=== PATIENT | female | born 1935 | race Caucasian/White ===

== ENCOUNTER → 2017-12-02 09:22 | Outpatient (CLI) | payer OTHER, SELFPAY ==
--- NOTE | 2017-12-02 | DI.CT.S_ITS ---
PROCEDURE: CT ABDOMEN W CON INDICATIONS: Upper right sided abdominal pain TECHNIQUE: After the administration of oral and intravenous contrast, 5 mm thick sections acquired from the diaphragms to the iliac crests. 5 mm thick coronal and sagittal reformats were acquired. For radiation dose reduction, the following was used: automated exposure control, adjustment of mA and/or kV according to patient size. COMPARISON: [facility], CT, CHEST HIGH RESOLUTION, 10/26/2011, 8:26. FINDINGS: Image quality: Excellent. Lung bases: Lung bases are clear except for chronic fibrotic change with mild focal bronchiectasis locally at the posterior right lower lobe, with adjacent lung scarring. Heart size is normal. Solid organs: Liver is normal in size and enhancement. There are several subcentimeter hypodensities within the spleen, measuring only approximately 3-4 mm in maximal dimension. Gallbladder is surgically absent. Biliary system is non dilated. Pancreas enhances normally. Spleen is normal in size. No adrenal nodules. Kidneys are normal in size, without hydronephrosis. Peritoneum and bowel: Contrast enhanced bowel loops appear normal in caliber. There is moderate colonic obstipation and surgical staple lines are seen at the right upper abdomen, consistent with colon. Anastomosis, without mass lesion or operative complications seen at the operative site. No free fluid or air. Nodes and vessels: No retroperitoneal or mesenteric adenopathy by size criteria. Aorta and inferior vena cava are normal in size. Bones: No suspicious bony lesions. No vertebral body compression fractures. Miscellaneous: No ventral hernias. IMPRESSION: Prior cholecystectomy, and what appears to be a small [id number] anastomosis is seen at the right mid abdomen. Colonic obstipation is seen elsewhere. No intestinal obstruction or perforation found. A definite source of new upper right-sided abdominal pain is not seen. Chronic appearing scarring and mild focal bronchiectasis is present at the right lower lobe, near the posterior lung base. Acute pneumonia does not appear superimposed. Dictated by: Orlin Mcnamara M.D. on 12/02/2017 at 13:37 Approved by: Orlin Mcnamara M.D. on 12/02/2017 at 13:42
== END ==
PROVIDERS: Family Provider Internal Medicine; PCP Internal Medicine; Visit Provider Internal Medicine
DX: K59.00 Constipation, unspecified (principal); R10.10 Upper abdominal pain, unspecified
CPT/HCPCS: 74160

== ENCOUNTER → 2020-01-14 15:04 | Outpatient (CLI) | payer OTHER, SELFPAY ==
--- NOTE | 2020-01-14 | DI.RAD.S_ITS ---
PROCEDURE: XR CHEST 2V INDICATIONS: Cough TECHNIQUE: 2 views of the chest were acquired. COMPARISON: [facility], , CHEST 2 VIEW, 10/01/2011, 12:49. FINDINGS: Surgical changes and devices: Upper quadrant surgical clips.. Lungs and pleura: Patchy and streaky opacities in the right lung base. No focal consolidation scattered scarring/atelectasis. No pleural effusions or pneumothorax. Mediastinum: Mediastinal contours are normal. Heart size is normal. Bones and chest wall: No suspicious bony abnormalities. Lateral curvature of the spine and discogenic changes. Soft tissues appear unremarkable. IMPRESSION: Ill-defined patchy and streaky opacities involving the right lung base, possibly scarring/atelectasis although technically age-indeterminate. Technically cannot exclude low grade aspiration or bronchopneumonia in the absence of more recent prior comparison studies. If there is persistent clinical diagnostic uncertainty, continued surveillance with short interval chest radiographs after treatment is recommended. No focal consolidation. Dictated by: Alex Melvin M.D. on 01/14/2020 at 15:56 Approved by: Alex Melvin M.D. on 01/14/2020 at 15:57
== END ==
PROVIDERS: Family Provider Internal Medicine; PCP Internal Medicine; Referring Provider Internal Medicine; Visit Provider Internal Medicine
DX: R05 Cough (principal)
CPT/HCPCS: 71046

== ENCOUNTER → 2020-02-12 11:49 | Outpatient (CLI) | payer OTHER, SELFPAY ==
--- NOTE | 2020-02-12 11:54 | DI.CT.S_ITS ---
PROCEDURE: CT CHEST WO CON INDICATIONS: abnormal findings on diagnostic images TECHNIQUE: Noncontrast 5 mm thick sections acquired from the pulmonary apices to the posterior costophrenic angles. 1 mm lung window, 5 mm thick coronal and sagittal and 7 mm axial MIP reformats were then acquired. For radiation dose reduction, the following was used: automated exposure control, adjustment of mA and/or kV according to patient size. COMPARISON: [facility], CT, CT ABDOMEN W CON, 12/02/2017, 10:22. [facility], CT, CHEST HIGH RESOLUTION, 10/26/2011, 8:26. [facility], CR, XR CHEST 2V, 01/14/2020, 15:00. FINDINGS: Image quality: Excellent. Lungs and pleura: No acute air space opacities. No pleural effusions or pneumothorax. Central and peripheral airways are patent and normal in caliber. Emphysematous changes are present. As identified on the prior exam, there is a thin-walled, expanding cavitary lesion in the right lower lobe with areas of solid wall nodularity. It currently measures 42 mm AP x 31 mm transverse compared to 23 mm AP x 25 mm transverse. There is associated traction bronchiectasis as well as mucous plugging and occlusion of adjacent bronchus. This corresponds to area of abnormality on chest x-ray. Mediastinum: Heart size is normal. No pericardial effusion. No mediastinal adenopathy by size criteria. Thoracic aorta and central pulmonary arteries are normal in size. Esophagus is normal in caliber. Prominent hiatal hernia. Bones and chest wall: No suspicious bony lesions. No vertebral body compression fractures. No axillary or supraclavicular adenopathy by size criteria. Thyroid gland is unremarkable . Abdomen: Visualized upper abdominal solid organs and bowel loops appear normal in the absence of contrast. IMPRESSION: 1. Cavitary lesion with wall nodularity identified in the right lower lobe which has increased in size compared to prior exam. While this could represent scarring, parenchymal destruction raises concern for an underlying process such as indolent infection including fungal. Malignancy also cannot be excluded. Further evaluation with biopsy and/or PET scan is recommended. Dictated by: Arleen Quigley M.D. on 02/12/2020 at 16:12 Approved by: Arleen Quigley M.D. on 02/12/2020 at 16:40
== END ==
PROVIDERS: Family Provider Internal Medicine; PCP Internal Medicine; Referring Provider Internal Medicine; Visit Provider Internal Medicine
DX: R93.89 Abnormal findings on diagnostic imaging of other specified body structures (principal); R91.8 Other nonspecific abnormal finding of lung field
CPT/HCPCS: 71250

== ENCOUNTER → 2020-03-04 15:31 | Outpatient (ROUT) | payer OTHER, SELFPAY ==
[2020-03-04 15:41] LABS: Add Manual Diff / Slide Review NO; Basophils Absolute Auto 0 /uL (0-100); Basophils Percent Auto 0.5 % (0-2); Eosinophils Absolute Auto 100 /uL (0-450); Hematocrit 41.1 % (36-46); Hemoglobin 13.8 g/dL (12.0-16.0); Lymphocytes Absolute Auto 1300 /uL (1100-4500); Lymphocytes Percent Auto 14.7 % (25-40); Mean Corpuscular HGB Conc 33.6 % (30-36); Mean Corpuscular Hemoglobin 29.2 PG (26-34); Monocytes Absolute Auto 800 /uL (0-900); Monocytes Percent Auto 8.5 % (3-14); Neutrophils Absolute Auto 6800 /uL (1500-7000); Neutrophils Percent Auto 75.3 % (50-75); Platelet Count 202 X10^3/uL (150-400); Red Blood Cell Count 4.72 X10^6/uL (4.0-5.2); Red Cell Distribution Width 13.7 % (11.6-14.8); White Blood Cell Count 9.1 X10^3/uL (4.5-11.0)
[2020-03-04 15:50] LABS: Alanine Aminotransferase 15 IU/L (<35); Albumin 4.3 g/dL (3.5-5.0); Albumin Globulin Ratio 1.8 (1.0-2.8); Alkaline Phosphatase 103 U/L (38-126); Aspartate Aminotransferase 35 IU/L (14-36); BUN Creatinine Ratio 17.6 (6-22); Bilirubin Total 0.7 mg/dL (0.2-1.3); Blood Urea Nitrogen 16 mg/dL (7-17); C-Reactive Protein Quant 0.5 mg/dL (<1.0); Calcium 9.6 mg/dL (8.4-10.2); Carbon Dioxide 23 mmol/L (22-32); Chloride 106 mmol/L (98-107); Estimated Glomerular Filt Rate 58.9 mL/min (>60); Globulin 2.4 g/dL (1.7-4.1); Glucose 103 mg/dL (80-110); HEMOLYSIS 20 (0-50); Potassium 4.3 mmol/L (3.4-5.1); Sodium 138 mmol/L (137-145); Total Protein 6.7 g/dL (6.3-8.2)
[2020-03-04 15:56] LABS: Hemoglobin A1C% w Est Avg Glu 5.1 % (4.0-6.0)
[2020-03-04 16:02] LABS: Erythrocyte Sedimentation Rate 6 MM/HR (0-20)
[2020-03-04 16:18] LABS: TSH w/ Reflex to FT4 1.27 uIU/mL (0.47-4.68)
== END ==
PROVIDERS: Family Provider Internal Medicine; PCP Internal Medicine; Visit Provider Physician Assistant
DX: R63.4 Abnormal weight loss (principal); R61 Generalized hyperhidrosis; R68.83 Chills (without fever); R53.83 Other fatigue
CPT/HCPCS: 80053; 83036; 84443; 85025; 85651; 86140

== ENCOUNTER → 2020-07-26 11:37 | Outpatient (CLI) | payer OTHER, SELFPAY ==
[2020-07-26 12:37] LABS: BUN Creatinine Ratio 17.8 (6-22); Blood Urea Nitrogen 19 mg/dL (7-17); Calcium 9.3 mg/dL (8.4-10.2); Carbon Dioxide 29 mmol/L (22-32); Chloride 107 mmol/L (98-107); Estimated Glomerular Filt Rate 48.7 mL/min (>60); Glucose 102 mg/dL (80-110); HEMOLYSIS < 15 (0-50); Potassium 4.4 mmol/L (3.4-5.1); Sodium 139 mmol/L (137-145)
== END ==
PROVIDERS: Family Provider Internal Medicine; PCP Internal Medicine; Referring Provider Internal Medicine Critical Care Medicine; Visit Provider Internal Medicine Critical Care Medicine
DX: R91.8 Other nonspecific abnormal finding of lung field (principal); J98.4 Other disorders of lung
CPT/HCPCS: 36415; 80048

== ENCOUNTER → 2021-01-05 09:43 | Outpatient (CLI) | payer OTHER, SELFPAY ==
--- NOTE | 2021-01-05 09:48 | DI.RAD.S_ITS ---
PROCEDURE: XR CHEST 2V INDICATIONS: CHEST TECHNIQUE: 2 views of the chest were acquired. COMPARISON: [facility], [place], PET NECK TO MID THIGH, 03/25/2020, 14:20. , CT, CT CHEST WO CON, 02/12/2020, 11:51. [facility], CT, CT CHEST WITH CONTRAST, 08/01/2020, 14:28. , CR, XR CHEST 2V, 01/14/2020, 15:00. , CR, CHEST 2 VIEW, 10/01/2011, 12:49. FINDINGS: Surgical changes and devices: None. Lungs and pleura: Lungs are abnormal, with chronic right lower lobe pneumonia best seen on the lateral view posteriorly. Airspace disease has been chronic in this area, including cavitary change identified by prior CT scanning.. No pleural effusions or pneumothorax. Mediastinum: Mediastinal contours are normal. Heart size is normal. Bones and chest wall: No suspicious bony abnormalities. Soft tissues appear unremarkable. IMPRESSION: Chronic lung disease right lower lobe posteriorly, better seen by prior CT scanning. Cavitary change has been documented in that area. This has not changed appreciably from 1 year ago. Therefore, inflammatory etiology rather than cavitary malignancy is considered the most likely cause at this time. Dictated by: Orlin Mcnamara M.D. on 01/05/2021 at 11:01 Approved by: Orlin Mcnamara M.D. on 01/05/2021 at 11:05
[2021-01-05 11:15] LABS: Add Manual Diff / Slide Review NO; Basophils Absolute Auto 100 /uL (0-100); Basophils Percent Auto 0.9 % (0-2); Eosinophils Absolute Auto 200 /uL (0-450); Eosinophils Percent Auto 1.9 % (2-4); Hematocrit 41.3 % (36-46); Hemoglobin 14.1 g/dL (12.0-16.0); Lymphocytes Absolute Auto 1400 /uL (1100-4500); Lymphocytes Percent Auto 17.4 % (25-40); Mean Corpuscular HGB Conc 34.1 % (30-36); Mean Corpuscular Hemoglobin 29.4 PG (26-34); Mean Corpuscular Volume 86.2 fL (80-100); Monocytes Absolute Auto 800 /uL (0-900); Monocytes Percent Auto 9.7 % (3-14); Neutrophils Absolute Auto 5800 /uL (1500-7000); Neutrophils Percent Auto 70.1 % (50-75); Platelet Count 177 X10^3/uL (150-400); Red Blood Cell Count 4.79 X10^6/uL (4.0-5.2); White Blood Cell Count 8.3 X10^3/uL (4.5-11.0)
[2021-01-05 11:28] LABS: Appearance Urine UA CLEAR; Bilirubin Urine UA NEGATIVE (NEGATIVE); Color Urine UA YELLOW; Glucose Urine UA NEGATIVE (Negative); Ketones Urine UA NEGATIVE (NEGATIVE); Leukocyte Esterase Urine UA TRACE (NEGATIVE); Nitrite Urine UA NEGATIVE (Negative); Occult Blood Urine UA TRACE-INTACT (Negative); Protein Urine UA NEGATIVE (Negative); Urobilinogen Urine UA 0.2 E.U./dL (0.2)
[2021-01-05 11:41] LABS: Amorphous Sediment Urine 1+; Bacteria Urine Few (2-10); Culture Indicated Urine Specimen Cultured; RBC Urine 1-5/HPF (0-5/HPF); Squamous Epithelial Cell Urine 1-5 /HPF (0-5/HPF); WBC Urine 1-5/HPF (0-5/HPF)
[2021-01-05 11:44] LABS: Alanine Aminotransferase 14 IU/L (<35); Albumin 4.1 g/dL (3.5-5.0); Albumin Globulin Ratio 1.7 (1.0-2.8); Alkaline Phosphatase 94 U/L (38-126); Aspartate Aminotransferase 28 IU/L (14-36); Bilirubin Total 0.7 mg/dL (0.2-1.3); Blood Urea Nitrogen 15 mg/dL (7-17); Calcium 9.6 mg/dL (8.4-10.2); Carbon Dioxide 24 mmol/L (22-32); Chloride 106 mmol/L (98-107); Cholesterol 179 mg/dL (140-199); Estimated Glomerular Filt Rate 48.7 mL/min (>60); Globulin 2.4 g/dL (1.7-4.1); Glucose 94 mg/dL (80-110); HDL Cholesterol 66 mg/dL (40-60); HEMOLYSIS < 15 (0-50); LDL Cholesterol Calculated 84 mg/dL (<100); Potassium 4.5 mmol/L (3.4-5.1); Sodium 139 mmol/L (137-145); Total Protein 6.5 g/dL (6.3-8.2); Triglycerides 147 mg/dL (35-150)
[2021-01-05 12:16] LABS: Thyroid Stimulating Hormone 2.29 uIU/mL (0.47-4.68)
== END ==
PROVIDERS: Family Provider Internal Medicine; PCP Family Medicine; Referring Provider Family Medicine; Visit Provider Family Medicine
DX: A15.0 Tuberculosis of lung (principal); J98.4 Other disorders of lung; I25.2 Old myocardial infarction; E78.00 Pure hypercholesterolemia, unspecified; R73.09 Other abnormal glucose; M48.061 Spinal stenosis, lumbar region without neurogenic claudication; G31.84 Mild cognitive impairment of uncertain or unknown etiology; J30.9 Allergic rhinitis, unspecified; Z98.61 Coronary angioplasty status
CPT/HCPCS: 36415; 71046; 80053; 80061; 81001; 83036; 84443; 85025; 87086

== ENCOUNTER → 2021-12-05 11:49 | Outpatient (CLI) | payer OTHER, SELFPAY ==
--- NOTE | 2021-12-05 | DI.CT.S_ITS ---
PROCEDURE: CT HEAD/BRAIN WO CON INDICATIONS: Alzheimer's disease, unspecified TECHNIQUE: Noncontrast 4.5 mm thick angled axial sections acquired from the foramen magnum to the vertex, with coronal and sagittal reformats. For radiation dose reduction, the following was used: automated exposure control, adjustment of mA and/or kV according to patient size. COMPARISON: None. FINDINGS: Image quality: Excellent. CSF spaces: Basal cisterns are patent. No extra-axial fluid collections. The ventricles are symmetric in size and shape. Brain: Severe global cerebral volume loss and moderate to severe chronic microvascular ischemic changes. No acute intracranial hemorrhage. No mass effect or midline shift. Skull and face: Calvarium and visualized facial bones appear intact, without suspicious lesions. Sinuses: Visualized sinuses and mastoids are clear. IMPRESSION: No acute intracranial finding. Severe global cerebral volume loss, without definite regional or lobar predilection to suggest a specific neuro degenerative disorder. Moderate to severe chronic microvascular ischemic changes. Dictated by: Brian Pierson M.D. on 12/05/2021 at 12:19 Approved by: Brian Pierson M.D. on 12/05/2021 at 12:19
== END ==
PROVIDERS: Family Provider Internal Medicine; PCP Family Medicine; Referring Provider Family Medicine; Visit Provider Family Medicine
DX: G30.9 Alzheimer's disease, unspecified
CPT/HCPCS: 70450

== ENCOUNTER → 2022-03-14 12:18 | Outpatient (CLI) | payer OTHER, SELFPAY ==
--- NOTE | 2022-03-14 | DI.RAD.S_ITS ---
PROCEDURE: XR LUMBAR SPINE 2-3V INDICATIONS: Dorsalgia, unspecified TECHNIQUE: 3 views of the lumbar spine were acquired. [facility], [facility] LUMBAR SPINE WITH OLBIQUES PLUS FLEXION EXTENSION, 12/13/2017, 14:54. FINDINGS: Bones: Dextro convex spinal curvature. Grade 1 anterolisthesis of L5 on S1 again seen. Moderate multilevel spondylosis characterized by disc space height loss and facet arthropathy primarily. Age indeterminate mild endplate deformities. Soft tissues: Overlying bowel gas pattern is normal. No suspicious soft tissue calcifications. Vascular calcifications. Suture lines in the right lower quadrant. Large stool burden. IMPRESSION: Moderate to severe spondylosis as described above. Age-indeterminate mild endplate deformities. Large stool burden. Vascular calcifications. Dictated by: Venkatesh Cheatham M.D. on 03/14/2022 at 16:23 Approved by: Venkatesh Cheatham M.D. on 03/14/2022 at 16:27
== END ==
PROVIDERS: Family Provider Internal Medicine; PCP Family Medicine; Referring Provider Family Medicine; Visit Provider Family Medicine
DX: M47.817 Spondylosis without myelopathy or radiculopathy, lumbosacral region (principal); M43.17 Spondylolisthesis, lumbosacral region; M54.9 Dorsalgia, unspecified
CPT/HCPCS: 72100

== ENCOUNTER → 2022-03-20 11:57 | Outpatient (CLI) | payer OTHER, SELFPAY | PROVIDERS: Family Provider Internal Medicine; PCP Family Medicine; Visit Provider Family Medicine | DX: Z13.820 Encounter for screening for osteoporosis (principal); M81.0 Age-related osteoporosis without current pathological fracture; Z78.0 Asymptomatic menopausal state; Z92.23 Personal history of estrogen therapy; Z90.710 Acquired absence of both cervix and uterus | CPT/HCPCS: 77080 ==

== ENCOUNTER 2023-02-06 11:12 | Inpatient (IN) | payer OTHER, SELFPAY ==
[2023-02-06] VITALS (13 sets, daily range): BP systolic 100–149; BP diastolic 53–66; PULSE 76–104; RESP 16–26; TEMP 36.8–37.6; O2SAT 92–100; BMI 22.6
--- NOTE | 2023-02-06 11:32 | DI.RAD.S_ITS ---
PROCEDURE: XR CHEST 1V INDICATIONS: suspected sepsis TECHNIQUE: One view of the chest was acquired. COMPARISON: [facility], CR, XR CHEST 2V, 01/05/2021, 10:00. FINDINGS: Surgical changes and devices: None. Lungs and pleura: Chronic emphysematous changes are seen. Ill-defined airspace opacities are noted in bilateral lower lung nichole concerning for small bilateral lower lobe infiltrate. No pleural effusions or pneumothorax. Mediastinum: Tortuous thoracic aorta with aortic arch calcifications are seen. Heart size is normal. Bones and chest wall: No suspicious bony lesions. Overlying soft tissues appear unremarkable. IMPRESSION: Finding is concerning for bilateral lower lobe patchy infiltrates. No pleural effusion or pneumothorax. COPD. Dictated by: Johnathan Kat M.D. on 02/06/2023 at 11:57 Approved by: Johnathan Kat M.D. on 02/06/2023 at 11:57
[2023-02-06] MEDS: SODIUM CHLORIDE 0.9% 1,000 ML 1000 ML IV (11:43)
--- NOTE | 2023-02-06 11:43 | PC.NURSE ---
Patient day 5 of uti symptoms. [facility] started abx this morning. Has had one dose. Presents with flank pain, ankle pain and abd pain. Daughter states she is more tired. Low grade fever upon arrival to ED
[2023-02-06 11:53] LABS: INR 1.4 (0.9-1.3); Prothrombin Time 15.6 SECONDS (10.1-12.7)
[2023-02-06 11:56] LABS: PTT Partial Thromboplastin Tim 32 SECONDS (26-36)
[2023-02-06 11:57] LABS: Lactate (Lactic Acid) 0.8 mmol/L (0.7-2.1)
[2023-02-06 11:58] LABS: Alanine Aminotransferase 17 IU/L (<35); Albumin 3.4 g/dL (3.5-5.0); Alkaline Phosphatase 90 U/L (38-126); Aspartate Aminotransferase 25 IU/L (14-36); BUN Creatinine Ratio 19.6 (6-22); Bilirubin Total 0.6 mg/dL (0.2-1.3); Blood Urea Nitrogen 20 mg/dL (7-17); Calcium 8.4 mg/dL (8.4-10.2); Carbon Dioxide 24 mmol/L (22-32); Chloride 103 mmol/L (98-107); Estimated Glomerular Filt Rate 53 mL/min (>60); Globulin 3.3 g/dL (1.7-4.1); Glucose 124 mg/dL (80-110); HEMOLYSIS < 15 (0-50); Lipase 48 U/L (23-300); Potassium 3.9 mmol/L (3.4-5.1); Sodium 136 mmol/L (137-145); Total Protein 6.7 g/dL (6.3-8.2)
[2023-02-06 12:00] LABS: Add Manual Diff / Slide Review NO; Basophils Absolute Auto 0 /uL (0-100); Basophils Percent Auto 0.4 % (0-2); Eosinophils Absolute Auto 0 /uL (0-450); Eosinophils Percent Auto 0.1 % (2-4); Hematocrit 28.6 % (36-46); Hemoglobin 9.5 g/dL (12.0-16.0); Lymphocytes Absolute Auto 600 /uL (1100-4500); Lymphocytes Percent Auto 4.4 % (25-40); Mean Corpuscular HGB Conc 33.4 % (30-36); Mean Corpuscular Hemoglobin 26.4 PG (26-34); Mean Corpuscular Volume 79.2 fL (80-100); Monocytes Absolute Auto 1000 /uL (0-900); Monocytes Percent Auto 7.3 % (3-14); Neutrophils Absolute Auto 11900 /uL (1500-7000); Neutrophils Percent Auto 87.8 % (50-75); Platelet Count 289 X10^3/uL (150-400); Red Blood Cell Count 3.61 X10^6/uL (4.0-5.2); Red Cell Distribution Width 16.1 % (11.6-14.8); White Blood Cell Count 13.5 X10^3/uL (4.5-11.0)
[2023-02-06 12:15] LABS: Procalcitonin 2.04 ng/mL (<0.5)
--- NOTE | 2023-02-06 12:55 | ED_ITS ---
HPI - Female Genitourinary <Batsheva Loza PA-C - Last Filed: 02/06/23 15:34> General Chief complaint: Urogenital-Female Stated complaint: DR sent UTI Time Seen by Provider: 02/06/23 11:28 Source: patient Mode of arrival: Wheelchair History of Present Illness HPI Narrative: 87-year-old female with past medical history hypercholesterolemia, dementia, dextroscoliosis brought in by her daughter to the ED for worsening week and visible UTI. Patient has advanced dementia, unable to provide history or ROS. History and ROS were obtained from patient's daughter who states that patient lives in a memory care center, they notified her 5 days ago that she has a UTI, was prescribed antibiotics. Patient was unable to start her antibiotics until this morning, however when patient's daughter took her to the PCP this morning, he sent her to the ED to rule out sepsis. Patient's daughter says that patient appears weak, refusing to walk, whereas she used to walk with a walker prior to that. Patient has been complaining about a back pain to her daughter. No known trauma or falls. Patient's daughter states that she is eating well, unsure of how much hydration she is getting. No vomiting, diarrhea. Related Data Home Medications Medication Instructions Recorded Confirmed aspirin 81 mg capsule,delayed 81 mg PO DAILY 02/06/23 02/06/23 release cephalexin 500 mg capsule 500 mg PO BID 02/06/23 02/06/23 risperidone 1 mg tablet 1 mg PO BEDTIME 02/06/23 02/06/23 Allergies Allergy/AdvReac Type Severity Reaction Status Date / Time adhesive Allergy Mild Verified 02/06/23 17:52 amoxicillin Allergy Mild Verified 02/06/23 17:52 cephalexin [From Keflex] Allergy Mild Verified 02/06/23 17:52 erythromycin base Allergy Mild Verified 02/06/23 17:52 Sulfa (Sulfonamide Allergy Mild Verified 02/06/23 17:52 Antibiotics) [id number] Reductase AdvReac Mild Leg cramps Verified 02/06/23 17:52 Inhibitor Review of Systems <Batsheva Loza PA-C - Last Filed: 02/06/23 15:34> Review of Systems ROS Unobtainable: Unobtainable due to mental condition Patient History <Batsheva Loza PA-C - Last Filed: 02/06/23 15:34> Medical History (Updated 02/06/23 @ 18:01 by Louis Mobley DO) CAD (coronary artery disease) CKD (chronic kidney disease), stage III Dementia Dextroscoliosis Lumbosacral spondylosis with radiculopathy Surgical History (Updated 02/06/23 @ 18:01 by Louis Mobley DO) History of coronary artery stent placement Family History (Updated 02/06/23 @ 18:02 by Louis Mobley DO) Mother No pertinent past medical history Father No pertinent past medical history alcohol intake frequency: holidays/special occasions only Substance Use Type: does not use Exam <Batsheva Loza PA-C - Last Filed: 02/06/23 15:34> Narrative Exam Narrative: Const General:?cooperative, somnolent but easily arousable HENAL Head:?normal to inspection Ears:?hearing grossly normal bilaterally Nose:?external nose normal Face and sinus:?normal facial exam and sinuses nontender Mouth:?oral mucosae normal Throat:?posterior oropharynx normal Eyes General:?appearance normal, both eyes and all related structures Neck Neck:?normal visual inspection and no lymphadenopathy noted Resp Effort & Inspection:?normal respiratory effort Auscultation:?clear to auscultation bilaterally Cardio Rate:?regular rate Rhythm:?regular rhythm GI Abdomen is soft, nondistended, nontender to palpation. Neuro General:?patient alert, patient somnolent but easily arousable Initial Vital Signs Initial Vital Signs: Vital Signs Temperature 98.9 F 02/06/23 11:15 Pulse Rate 104 H 02/06/23 11:15 Respiratory Rate 16 02/06/23 11:15 Blood Pressure 116/58 L 02/06/23 11:15 Pulse Oximetry 96 02/06/23 11:15 Oxygen Delivery Method Room Air 02/06/23 11:15 <Radha Evans DO - Last Filed: 02/06/23 19:06> Initial Vital Signs Initial Vital Signs: Vital Signs Temperature 98.9 F 02/06/23 11:15 Pulse Rate 104 H 02/06/23 11:15 Respiratory Rate 16 02/06/23 11:15 Blood Pressure 116/58 L 02/06/23 11:15 Pulse Oximetry 96 02/06/23 11:15 Oxygen Delivery Method Room Air 02/06/23 11:15 Course <Batsheva Loza PA-C - Last Filed: 02/06/23 15:34> Orders Ordered: ED Orders 02/06/23 11:32 XR chest 1V Stat RT Consult Eval and Treat NOW 02/06/23 11:35 Complete Blood Count AUTO DIFF Stat Comprehensive Metabolic Panel Stat Lactate (Lactic Acid) Stat Lipase Stat PTT Partial Thromboplastin Miguelito Stat Procalcitonin Stat Prothrombin Time INR Stat 02/06/23 11:46 Blood Culture Stat 02/06/23 12:18 Urinalysis and Microscopic Stat Urine Culture Stat 02/06/23 15:20 EKG-12 Lead Stat 02/07/23 05:00 Complete Blood Count AUTO DIFF DAILY Comprehensive Metabolic Panel DAILY Magnesium DAILY Procalcitonin DAILY 02/08/23 05:00 Complete Blood Count AUTO DIFF DAILY Comprehensive Metabolic Panel DAILY Magnesium DAILY 02/09/23 05:00 Complete Blood Count AUTO DIFF DAILY Comprehensive Metabolic Panel DAILY Magnesium DAILY Acetaminophen (Acetaminophen 325 Mg Tablet) 650 mg PO Q6H PRN PRN Reason: Fever/Mild Pain (1-3) Aspirin (Aspirin Ec 81 Mg Tablet) 81 mg PO DAILY [facility] Enoxaparin Sodium (Enoxaparin 40 Mg/0.4 Ml Syringe) 40 mg SUBCUT DAILY [facility] Ceftriaxone Sodium 1,000 mg/ (Sodium Chloride) 100 mls @ 200 mls/hr IV 1300 ASHOK Stop: 02/11/23 12:59 Sodium Chloride (Normal Saline 0.9%) 250 mls @ 21 mls/hr IV Q24H PRN PRN Reason: Flush Naloxone HCl (Naloxone 0.4 Mg/Ml Vial) 0.2 mg IV Q2MIN PRN PRN Reason: Opiate Reversal Risperidone (Risperidone 1 Mg Tablet) 1 mg PO BEDTIME ASHOK Sodium Chloride (Sodium Chloride 0.9% Flush) 10 ml IV PRN PRN PRN Reason: Flush Sodium Chloride (Sodium Chloride 0.9% Flush) 10 ml IV BID ASHOK Discontinued Medications Acetaminophen (Acetaminophen 325 Mg Tablet) 975 mg PO NOW ONE Stop: 02/06/23 12:52 Last Admin: 02/06/23 13:20 Dose: 975 mg Documented By: ANDRE Azithromycin (Azithromycin 250 Mg Tablet) 500 mg PO NOW ONE Stop: 02/06/23 13:20 Last Admin: 02/06/23 15:48 Dose: 500 mg Documented By: AMU Sodium Chloride (Normal Saline 0.9%) 1,000 mls @ 1,000 mls/hr IV BOLUS ONE Stop: 02/06/23 12:31 Last Infusion: 02/06/23 13:58 Dose: 0 mls/hr Documented By: Admin: 02/06/23 11:43 Dose: 1,000 mls/hr Documented By: CHAS Sodium Chloride (Normal Saline 0.9%) 1,000 mls @ 1,000 mls/hr IV BOLUS ONE Stop: 02/06/23 13:33 Last Admin: 02/06/23 14:01 Dose: Not Given Documented By: LILIAN Ceftriaxone Sodium 1,000 mg/ (Sodium Chloride) 100 mls @ 200 mls/hr IV NOW ONE Stop: 02/06/23 12:35 Ceftriaxone Sodium 1,000 mg/ (Sodium Chloride) 100 mls @ 200 mls/hr IV NOW ONE Stop: 02/06/23 13:19 Last Infusion: 02/06/23 14:01 Dose: 0 mls/hr Documented By: Admin: 02/06/23 13:28 Dose: 200 mls/hr Documented By: ANDER Ondansetron HCl (Ondansetron 4 Mg/2 Ml Inj) 4 mg IV NOW PRN PRN Reason: Nausea And Vomiting Vital Signs Vital signs: Vital Signs - 8 hr 02/06/23 11:15 02/06/23 11:36 02/06/23 11:36 Temperature 98.9 F 99.2 F Pulse Rate 104 H 104 H Respiratory Rate 16 26 H Blood Pressure 116/58 L 119/65 Pulse Oximetry 96 95 Oxygen Delivery Method Room Air 02/06/23 12:00 02/06/23 12:00 02/06/23 12:30 Temperature Pulse Rate 84 Respiratory Rate 23 Blood Pressure 116/58 L 117/56 L Pulse Oximetry 94 Oxygen Delivery Method 02/06/23 12:30 02/06/23 13:20 02/06/23 13:00 Temperature 99.2 F Pulse Rate 84 Respiratory Rate Blood Pressure 144/66 H Pulse Oximetry 95 Oxygen Delivery Method 02/06/23 13:00 02/06/23 13:30 02/06/23 13:30 Temperature Pulse Rate 90 86 Respiratory Rate 20 24 Blood Pressure 144/63 H Pulse Oximetry 92 95 Oxygen Delivery Method 02/06/23 14:00 02/06/23 14:00 02/06/23 14:30 Temperature Pulse Rate 76 Respiratory Rate 18 Blood Pressure 111/53 L 127/58 L Pulse Oximetry 93 Oxygen Delivery Method 02/06/23 14:30 02/06/23 15:00 02/06/23 15:00 Temperature Pulse Rate 79 79 Respiratory Rate 19 20 Blood Pressure 100/55 L Pulse Oximetry 94 94 Oxygen Delivery Method 02/06/23 15:46 02/06/23 15:46 Temperature Pulse Rate 85 Respiratory Rate Blood Pressure 136/64 Pulse Oximetry 96 Oxygen Delivery Method Room Air <Radha Evans, DO - Last Filed: 02/06/23 19:06> Orders Ordered: ED Orders 02/06/23 11:32 XR chest 1V Stat RT Consult Eval and Treat NOW 02/06/23 11:35 Complete Blood Count AUTO DIFF Stat Comprehensive Metabolic Panel Stat Lactate (Lactic Acid) Stat Lipase Stat PTT Partial Thromboplastin Miguelito Stat Procalcitonin Stat Prothrombin Time INR Stat 02/06/23 11:46 Blood Culture Stat 02/06/23 12:18 Urinalysis and Microscopic Stat Urine Culture Stat 02/06/23 15:20 EKG-12 Lead Stat 02/07/23 05:00 Complete Blood Count AUTO DIFF DAILY Comprehensive Metabolic Panel DAILY Magnesium DAILY Procalcitonin DAILY 02/08/23 05:00 Complete Blood Count AUTO DIFF DAILY Comprehensive Metabolic Panel DAILY Magnesium DAILY 02/09/23 05:00 Complete Blood Count AUTO DIFF DAILY Comprehensive Metabolic Panel DAILY Magnesium DAILY Acetaminophen (Acetaminophen 325 Mg Tablet) 650 mg PO Q6H PRN PRN Reason: Fever/Mild Pain (1-3) Aspirin (Aspirin Ec 81 Mg Tablet) 81 mg PO DAILY [facility] Enoxaparin Sodium (Enoxaparin 40 Mg/0.4 Ml Syringe) 40 mg SUBCUT DAILY [facility] Ceftriaxone Sodium 1,000 mg/ (Sodium Chloride) 100 mls @ 200 mls/hr IV 1300 ASHOK Stop: 02/11/23 12:59 Sodium Chloride (Normal Saline 0.9%) 250 mls @ 21 mls/hr IV Q24H PRN PRN Reason: Flush Naloxone HCl (Naloxone 0.4 Mg/Ml Vial) 0.2 mg IV Q2MIN PRN PRN Reason: Opiate Reversal Risperidone (Risperidone 1 Mg Tablet) 1 mg PO BEDTIME [facility] Sodium Chloride (Sodium Chloride 0.9% Flush) 10 ml IV PRN PRN PRN Reason: Flush Sodium Chloride (Sodium Chloride 0.9% Flush) 10 ml IV BID ASHOK Discontinued Medications Acetaminophen (Acetaminophen 325 Mg Tablet) 975 mg PO NOW ONE Stop: 02/06/23 12:52 Last Admin: 02/06/23 13:20 Dose: 975 mg Documented By: ANDRE Azithromycin (Azithromycin 250 Mg Tablet) 500 mg PO NOW ONE Stop: 02/06/23 13:20 Last Admin: 02/06/23 15:48 Dose: 500 mg Documented By: GAYLE Sodium Chloride (Normal Saline 0.9%) 1,000 mls @ 1,000 mls/hr IV BOLUS ONE Stop: 02/06/23 12:31 Last Infusion: 02/06/23 13:58 Dose: 0 mls/hr Documented By: Admin: 02/06/23 11:43 Dose: 1,000 mls/hr Documented By: CHAS Sodium Chloride (Normal Saline 0.9%) 1,000 mls @ 1,000 mls/hr IV BOLUS ONE Stop: 02/06/23 13:33 Last Admin: 02/06/23 14:01 Dose: Not Given Documented By: LILIAN Ceftriaxone Sodium 1,000 mg/ (Sodium Chloride) 100 mls @ 200 mls/hr IV NOW ONE Stop: 02/06/23 12:35 Ceftriaxone Sodium 1,000 mg/ (Sodium Chloride) 100 mls @ 200 mls/hr IV NOW ONE Stop: 02/06/23 13:19 Last Infusion: 02/06/23 14:01 Dose: 0 mls/hr Documented By: Admin: 02/06/23 13:28 Dose: 200 mls/hr Documented By: ANDRE Ondansetron HCl (Ondansetron 4 Mg/2 Ml Inj) 4 mg IV NOW PRN PRN Reason: Nausea And Vomiting Vital Signs Vital signs: Vital Signs - 8 hr 02/06/23 11:15 02/06/23 11:36 02/06/23 11:36 Temperature 98.9 F 99.2 F Pulse Rate 104 H 104 H Respiratory Rate 16 26 H Blood Pressure 116/58 L 119/65 Pulse Oximetry 96 95 Oxygen Delivery Method Room Air 02/06/23 12:00 02/06/23 12:00 02/06/23 12:30 Temperature Pulse Rate 84 Respiratory Rate 23 Blood Pressure 116/58 L 117/56 L Pulse Oximetry 94 Oxygen Delivery Method 02/06/23 12:30 02/06/23 13:20 02/06/23 13:00 Temperature 99.2 F Pulse Rate 84 Respiratory Rate Blood Pressure 144/66 H Pulse Oximetry 95 Oxygen Delivery Method 02/06/23 13:00 02/06/23 13:30 02/06/23 13:30 Temperature Pulse Rate 90 86 Respiratory Rate 20 24 Blood Pressure 144/63 H Pulse Oximetry 92 95 Oxygen Delivery Method 02/06/23 14:00 02/06/23 14:00 02/06/23 14:30 Temperature Pulse Rate 76 Respiratory Rate 18 Blood Pressure 111/53 L 127/58 L Pulse Oximetry 93 Oxygen Delivery Method 02/06/23 14:30 02/06/23 15:00 02/06/23 15:00 Temperature Pulse Rate 79 79 Respiratory Rate 19 20 Blood Pressure 100/55 L Pulse Oximetry 94 94 Oxygen Delivery Method 02/06/23 15:46 02/06/23 15:46 Temperature Pulse Rate 85 Respiratory Rate Blood Pressure 136/64 Pulse Oximetry 96 Oxygen Delivery Method Room Air MDM - Female Genitourinary <Hymgreg Loza PA-C - Last Filed: 02/06/23 15:34> Lab Data 02/06/23 11:35 02/06/23 11:35 Labs: Lab Results 02/06/23 02/06/23 02/06/23 Range/Units 11:35 11:35 11:35 WBC 13.5 H (4.5-11.0) X10^3/uL RBC 3.61 L (4.0-5.2) X10^6/uL Hgb 9.5 L (12.0-16.0) g/dL Hct 28.6 L (36-46) % MCV 79.2 L (80-100) fL MCH 26.4 (26-34) PG MCHC 33.4 (30-36) % RDW 16.1 H (11.6-14.8) % Plt Count 289 (150-400) X10^3/uL Neut % (Auto) 87.8 H (50-75) % Lymph % (Auto) 4.4 L (25-40) % [place] % (Auto) 7.3 (3-14) % Eos % (Auto) 0.1 L (2-4) % Baso % (Auto) 0.4 (0-2) % Neut # (Auto) 85387 H (5870-3761) /uL Lymph # (Auto) 600 L (5667-4483) /uL [place] # (Auto) 1000 H (0-900) /uL Eos # (Auto) 0 (0-450) /uL Baso # (Auto) 0 (0-100) /uL PT 15.6 H (10.1-12.7) SECONDS INR 1.4 H (0.9-1.3) APTT 32 (26-36) SECONDS Sodium 136 L (137-145) mmol/L Potassium 3.9 (3.4-5.1) mmol/L Chloride 103 (98-107) mmol/L Carbon Dioxide 24 (22-32) mmol/L BUN 20 H (7-17) mg/dL Creatinine 1.02 (0.52-1.04) mg/dL Estimated GFR 53 L (>60) mL/min BUN/Creatinine Ratio 19.6 (6-22) Glucose 124 H (80-110) mg/dL Lactate (0.7-2.1) mmol/L Calcium 8.4 (8.4-10.2) mg/dL Total Bilirubin 0.6 (0.2-1.3) mg/dL AST 25 (14-36) IU/L ALT 17 (<35) IU/L Alkaline Phosphatase 90 (38-126) U/L Total Protein 6.7 (6.3-8.2) g/dL Albumin 3.4 L (3.5-5.0) g/dL Globulin 3.3 (1.7-4.1) g/dL Albumin/Globulin Ratio 1.0 (1.0-2.8) Lipase 48 (23-300) U/L Procalcitonin 2.04 H (<0.5) ng/mL Urine Color Urine Appearance Urine pH (4.5-8.0) Ur Specific [place] (1.000-1.035) Urine Protein (Negative) Urine Glucose (UA) (Negative) g/dL Urine Ketones (NEGATIVE) Urine Occult Blood (Negative) Urine Nitrate (Negative) Urine Bilirubin (NEGATIVE) Urine Urobilinogen (0.2) E.U./dL Ur Leukocyte Esterase (NEGATIVE) Urine RBC (0-5/HPF) Urine WBC (0-5/HPF) Ur Squamous Epith Cells (0-5/HPF) Amorphous Sediment Urine Bacteria (None) Ur Culture Indicated? 02/06/23 02/06/23 Range/Units 11:35 12:18 WBC (4.5-11.0) X10^3/uL RBC (4.0-5.2) X10^6/uL Hgb (12.0-16.0) g/dL Hct (36-46) % MCV (80-100) fL MCH (26-34) PG MCHC (30-36) % RDW (11.6-14.8) % Plt Count (150-400) X10^3/uL Neut % (Auto) (50-75) % Lymph % (Auto) (25-40) % [place] % (Auto) (3-14) % Eos % (Auto) (2-4) % Baso % (Auto) (0-2) % Neut # (Auto) (1161-3646) /uL Lymph # (Auto) (2648-5601) /uL [place] # (Auto) (0-900) /uL Eos # (Auto) (0-450) /uL Baso # (Auto) (0-100) /uL PT (10.1-12.7) SECONDS INR (0.9-1.3) APTT (26-36) SECONDS Sodium (137-145) mmol/L Potassium (3.4-5.1) mmol/L Chloride (98-107) mmol/L Carbon Dioxide (22-32) mmol/L BUN (7-17) mg/dL Creatinine (0.52-1.04) mg/dL Estimated GFR (>60) mL/min BUN/Creatinine Ratio (6-22) Glucose (80-110) mg/dL Lactate 0.8 (0.7-2.1) mmol/L Calcium (8.4-10.2) mg/dL Total Bilirubin (0.2-1.3) mg/dL AST (14-36) IU/L ALT (<35) IU/L Alkaline Phosphatase (38-126) U/L Total Protein (6.3-8.2) g/dL Albumin (3.5-5.0) g/dL Globulin (1.7-4.1) g/dL Albumin/Globulin Ratio (1.0-2.8) Lipase (23-300) U/L Procalcitonin (<0.5) ng/mL Urine Color Yellow Urine Appearance Clear Urine pH 6.5 (4.5-8.0) Ur Specific [place] 1.010 (1.000-1.035) Urine Protein Negative (Negative) Urine Glucose (UA) Negative (Negative) g/dL Urine Ketones Negative (NEGATIVE) Urine Occult Blood 2+ H (Negative) Urine Nitrate Negative (Negative) Urine Bilirubin Negative (NEGATIVE) Urine Urobilinogen 2.0 H (0.2) E.U./dL Ur Leukocyte Esterase Negative (NEGATIVE) Urine RBC 1-5/hpf (0-5/HPF) Urine WBC 5-10/hpf H (0-5/HPF) Ur Squamous Epith Cells None seen (0-5/HPF) Amorphous Sediment 1+ Urine Bacteria Occasional (0-1) (None) Ur Culture Indicated? Specimen cultured MDM Narrative Medical decision making narrative: 87-year-old female with past medical history hypercholesterolemia, dementia, dextroscoliosis brought in by her daughter to the ED for worsening week and visible UTI. Concern for UTI versus pyelonephritis versus sepsis versus ACS versus dehydration versus other. Will obtain labs, UA, chest x-ray, pro calcitonin, lactate. Will give IV fluids, Tylenol. Will reassess. Urinalysis is positive for a UTI. Chest x-ray shows possible bilateral lower lobe patchy infiltrates. WBC elevated to 13.5. Procalcitonin elevated to 2.04. Patient started on ceftriaxone, azithromycin. Consulted hospitalist Dr. Mobley for admission. He graciously accepts patient for observation. Medical records reviewed: Yes <Radha Evans DO - Last Filed: 02/06/23 19:06> Lab Data Labs: Lab Results 02/06/23 02/06/23 02/06/23 Range/Units 11:35 11:35 11:35 WBC 13.5 H (4.5-11.0) X10^3/uL RBC 3.61 L (4.0-5.2) X10^6/uL Hgb 9.5 L (12.0-16.0) g/dL Hct 28.6 L (36-46) % MCV 79.2 L (80-100) fL MCH 26.4 (26-34) PG MCHC 33.4 (30-36) % RDW 16.1 H (11.6-14.8) % Plt Count 289 (150-400) X10^3/uL Neut % (Auto) 87.8 H (50-75) % Lymph % (Auto) 4.4 L (25-40) % [place] % (Auto) 7.3 (3-14) % Eos % (Auto) 0.1 L (2-4) % Baso % (Auto) 0.4 (0-2) % Neut # (Auto) 78418 H (6870-1386) /uL Lymph # (Auto) 600 L (0945-6619) /uL [place] # (Auto) 1000 H (0-900) /uL Eos # (Auto) 0 (0-450) /uL Baso # (Auto) 0 (0-100) /uL PT 15.6 H (10.1-12.7) SECONDS INR 1.4 H (0.9-1.3) APTT 32 (26-36) SECONDS Sodium 136 L (137-145) mmol/L Potassium 3.9 (3.4-5.1) mmol/L Chloride 103 (98-107) mmol/L Carbon Dioxide 24 (22-32) mmol/L BUN 20 H (7-17) mg/dL Creatinine 1.02 (0.52-1.04) mg/dL Estimated GFR 53 L (>60) mL/min BUN/Creatinine Ratio 19.6 (6-22) Glucose 124 H (80-110) mg/dL Lactate (0.7-2.1) mmol/L Calcium 8.4 (8.4-10.2) mg/dL Total Bilirubin 0.6 (0.2-1.3) mg/dL AST 25 (14-36) IU/L ALT 17 (<35) IU/L Alkaline Phosphatase 90 (38-126) U/L Total Protein 6.7 (6.3-8.2) g/dL Albumin 3.4 L (3.5-5.0) g/dL Globulin 3.3 (1.7-4.1) g/dL Albumin/Globulin Ratio 1.0 (1.0-2.8) Lipase 48 (23-300) U/L Procalcitonin 2.04 H (<0.5) ng/mL Urine Color Urine Appearance Urine pH (4.5-8.0) Ur Specific [place] (1.000-1.035) Urine Protein (Negative) Urine Glucose (UA) (Negative) g/dL Urine Ketones (NEGATIVE) Urine Occult Blood (Negative) Urine Nitrate (Negative) Urine Bilirubin (NEGATIVE) Urine Urobilinogen (0.2) E.U./dL Ur Leukocyte Esterase (NEGATIVE) Urine RBC (0-5/HPF) Urine WBC (0-5/HPF) Ur Squamous Epith Cells (0-5/HPF) Amorphous Sediment Urine Bacteria (None) Ur Culture Indicated? 02/06/23 02/06/23 Range/Units 11:35 12:18 WBC (4.5-11.0) X10^3/uL RBC (4.0-5.2) X10^6/uL Hgb (12.0-16.0) g/dL Hct (36-46) % MCV (80-100) fL MCH (26-34) PG MCHC (30-36) % RDW (11.6-14.8) % Plt Count (150-400) X10^3/uL Neut % (Auto) (50-75) % Lymph % (Auto) (25-40) % [place] % (Auto) (3-14) % Eos % (Auto) (2-4) % Baso % (Auto) (0-2) % Neut # (Auto) (3796-4499) /uL Lymph # (Auto) (6406-5106) /uL [place] # (Auto) (0-900) /uL Eos # (Auto) (0-450) /uL Baso # (Auto) (0-100) /uL PT (10.1-12.7) SECONDS INR (0.9-1.3) APTT (26-36) SECONDS Sodium (137-145) mmol/L Potassium (3.4-5.1) mmol/L Chloride (98-107) mmol/L Carbon Dioxide (22-32) mmol/L BUN (7-17) mg/dL Creatinine (0.52-1.04) mg/dL Estimated GFR (>60) mL/min BUN/Creatinine Ratio (6-22) Glucose (80-110) mg/dL Lactate 0.8 (0.7-2.1) mmol/L Calcium (8.4-10.2) mg/dL Total Bilirubin (0.2-1.3) mg/dL AST (14-36) IU/L ALT (<35) IU/L Alkaline Phosphatase (38-126) U/L Total Protein (6.3-8.2) g/dL Albumin (3.5-5.0) g/dL Globulin (1.7-4.1) g/dL Albumin/Globulin Ratio (1.0-2.8) Lipase (23-300) U/L Procalcitonin (<0.5) ng/mL Urine Color Yellow Urine Appearance Clear Urine pH 6.5 (4.5-8.0) Ur Specific [place] 1.010 (1.000-1.035) Urine Protein Negative (Negative) Urine Glucose (UA) Negative (Negative) g/dL Urine Ketones Negative (NEGATIVE) Urine Occult Blood 2+ H (Negative) Urine Nitrate Negative (Negative) Urine Bilirubin Negative (NEGATIVE) Urine Urobilinogen 2.0 H (0.2) E.U./dL Ur Leukocyte Esterase Negative (NEGATIVE) Urine RBC 1-5/hpf (0-5/HPF) Urine WBC 5-10/hpf H (0-5/HPF) Ur Squamous Epith Cells None seen (0-5/HPF) Amorphous Sediment 1+ Urine Bacteria Occasional (0-1) (None) Ur Culture Indicated? Specimen cultured ECG Data Attestation: I personally reviewed and interpreted this ECG as follows: Prior ECG tracings: available for review Interpretation: Nathan: Sinus rhythm sinus arrhythmia, rate of 91 VT 160 QRS is 68 QTC [address] No acute ST elevation or depression appreciated. Patient has prior from appears similar to todays. Discharge Plan Departure Patient Disposition: Admitted as Observation Clinical Impression: Urinary tract infection, Pneumonia Admit Date/Time: 02/06/23 16:21 Admit Provider: Louis Mobley <Radha Evans, DO - Last Filed: 02/06/23 19:06> Cosign ED Attending Cosignature Attestation: I was immediately available in the department for consultation. Documentation has been reviewed. Case was discussed with myself. Insert for UTI/pneumonia, sepsis, patient case was discussed held off on sepsis fluids based on age so not 30 cc/kilos bolus initially. Antibiotics were given, patient's curb 65 score was 3, patient was felt appropriate for admission discussed with hospitalist and accepted.
[2023-02-06 13:01] LABS: Appearance Urine UA CLEAR; Bilirubin Urine UA NEGATIVE (NEGATIVE); Color Urine UA YELLOW; Glucose Urine UA NEGATIVE (Negative); Ketones Urine UA NEGATIVE (NEGATIVE); Leukocyte Esterase Urine UA NEGATIVE (NEGATIVE); Nitrite Urine UA NEGATIVE (Negative); Occult Blood Urine UA 2+ (Negative); Protein Urine UA NEGATIVE (Negative)
[2023-02-06 13:04] LABS: pH Urine UA 6.5 (4.5-8.0)
[2023-02-06 13:10] LABS: Amorphous Sediment Urine 1+; Bacteria Urine Occasional (0-1); Culture Indicated Urine Specimen Cultured; RBC Urine 1-5/HPF (0-5/HPF); Squamous Epithelial Cell Urine None Seen (0-5/HPF); WBC Urine 5-10/HPF (0-5/HPF)
[2023-02-06] MEDS: ACETAMINOPHEN 325 MG TABLET 975 MG PO (13:20)
[2023-02-06] MEDS: cefTRIAXone 1,000 MG in SODIUM CHLORIDE 0.9% 100 ML 200 MG IV (13:28)
--- NOTE | 2023-02-06 15:06 | PM.HP.1 ---
History of Present Illness History of Present Illness Date Patient Seen: 02/06/23 Time Patient Seen: 15:06 Date of Onset of Symptoms: 02/01/23 Chief complaint: DR sent UTI Narrative: This is an 87 year old female with PMH of dementia, CAD with prior stenting, CKD stage III who lives at a memory care center in [place] who was sent to the emergency room by her PCP this morning. Patient has been more lethargic over the last 4 days per her daughter. Additional history is obtained via discussion with patient's daughter given patient's dementia and inaccurate recall of events along with her noted lethargy. She has not reported a fever, abdominal pain, nausea, vomiting or diarrhea. There has been no cough noted either. Normally patient is quite talkative, ambulatory with a walker and active at her [facility]. She was tested and fount to have a UTI now 5 days ago, but did not take her first antibiotic pill (cephalexin) until this morning. She had a PCP appointment this morning, when she was noted to be quite a bit more lethargic per her PCP and was recommended to come to the ER. Daughter does report chronic R sided leg and back pain, maybe slightly worse than usual but nothing absurdly out of the ordinary for her. In the ER, patient's vitals were unremarkable. UA did show 5-10 WBC, RBC 1-5 and was reflexed for culture. Outside cultures are not available for review. Labs notable for WBC 13.5, Hg 9.5 (unknown baseline), cr 1.02, and procalcitonin of 2. Patient was admitted for UTI with metabolic encephlopathy. [facility] Medical History (Updated 02/06/23 @ 18:01 by Louis Mobley DO) CAD (coronary artery disease) CKD (chronic kidney disease), stage III Dementia Dextroscoliosis Lumbosacral spondylosis with radiculopathy Surgical History (Updated 02/06/23 @ 18:01 by Louis Mobley DO) History of coronary artery stent placement Family History (Updated 02/06/23 @ 18:02 by Louis Mobley DO) Mother No pertinent past medical history Father No pertinent past medical history Social History (Updated 02/06/23 @ 18:02 by Louis Mobley DO) Smoking Status: Never smoker Meds Home Medications and Allergies Home Medications Medication Instructions Recorded Confirmed Type aspirin 81 mg capsule,delayed 81 mg PO DAILY 02/06/23 02/06/23 History release cephalexin 500 mg capsule 500 mg PO BID 02/06/23 02/06/23 History risperidone 1 mg tablet 1 mg PO BEDTIME 02/06/23 02/06/23 History Allergies Allergy/AdvReac Type Severity Reaction Status Date / Time adhesive Allergy Mild Verified 02/06/23 17:52 amoxicillin Allergy Mild Verified 02/06/23 17:52 cephalexin [From Keflex] Allergy Mild Verified 02/06/23 17:52 erythromycin base Allergy Mild Verified 02/06/23 17:52 Sulfa (Sulfonamide Allergy Mild Verified 02/06/23 17:52 Antibiotics) [id number]-[id number] Reductase AdvReac Mild Leg cramps Verified 02/06/23 17:52 Inhibitor Review of Systems Review of Systems Narrative: All other systems reviewed with the patient's daughter and are negative unless otherwise stated. It should be noted these are reported and patient is unable to accurately relay reliable information. Exam Vital Signs (past 8 hours): - 02/06/23 11:15 02/06/23 11:36 02/06/23 11:36 Temperature 98.9 F 99.2 F Pulse Rate 104 H 104 H Respiratory Rate 16 26 H Blood Pressure 116/58 L 119/65 Pulse Oximetry 96 95 Oxygen Delivery Method Room Air 02/06/23 12:00 02/06/23 12:00 02/06/23 12:30 Temperature Pulse Rate 84 Respiratory Rate 23 Blood Pressure 116/58 L 117/56 L Pulse Oximetry 94 Oxygen Delivery Method 02/06/23 12:30 02/06/23 13:20 02/06/23 13:00 Temperature 99.2 F Pulse Rate 84 Respiratory Rate Blood Pressure 144/66 H Pulse Oximetry 95 Oxygen Delivery Method 02/06/23 13:00 02/06/23 13:30 02/06/23 13:30 Temperature Pulse Rate 90 86 Respiratory Rate 20 24 Blood Pressure 144/63 H Pulse Oximetry 92 95 Oxygen Delivery Method 02/06/23 14:00 02/06/23 14:00 02/06/23 14:30 Temperature Pulse Rate 76 Respiratory Rate 18 Blood Pressure 111/53 L 127/58 L Pulse Oximetry 93 Oxygen Delivery Method 02/06/23 14:30 Temperature Pulse Rate 79 Respiratory Rate 19 Blood Pressure Pulse Oximetry 94 Oxygen Delivery Method Oxygen Delivery Method Room Air Narrative Exam Narrative: General:? Lethargic mildly acutely ill appearing elderly female, no acute distress HEENT:? Normocephalic, atraumatic, extraocular muscles intact, oral pharynx is clear and mucous membranes are dry Neck: supple and symmetric, trachea is midline, no cervical adenopathy. Negative for JVD Chest:? Normal AP diameter and contour without kyphoscoliosis, no tachypnea, equal chest rise bilaterally. Lungs:? CTA b/l no wheezing rhonchi or rales. Cardio:?RRR no m/r/g. Abdomen: S NT ND. No CVA tenderness. Musculoskeletal:? Muscle strength and tone are equal within normal limits, no deformity. Extremities: No edema or joint effusions. No cyanosis or clubbing. Skin:? Pale,? Warm to touch,dry and intact without rashes, ulcerations or petechiae.? Neuro:? Alert and orientated to name and hospital,? sensation to touch intact in all extremities, no gross deficits noted of cranial nerves. Lethargic and more confused than normal per daughter. Psych:? Patient has a well-kept appearance, appropriate affect, mental status attitude thought context and judgment are appropriate for age. Objective ECG Impression: NSR with sinus arrythmia, no acute ischemia Labs 02/06/23 11:35 02/06/23 11:35 Labs: Laboratory Results - last 24 hr 02/06/23 02/06/23 02/06/23 11:35 11:35 11:35 WBC 13.5 H RBC 3.61 L Hgb 9.5 L Hct 28.6 L MCV 79.2 L MCH 26.4 MCHC 33.4 RDW 16.1 H Plt Count 289 Neut % (Auto) 87.8 H Lymph % (Auto) 4.4 L [place] % (Auto) 7.3 Eos % (Auto) 0.1 L Baso % (Auto) 0.4 Neut # (Auto) 11799 H Lymph # (Auto) 600 L [place] # (Auto) 1000 H Eos # (Auto) 0 Baso # (Auto) 0 PT 15.6 H INR 1.4 H APTT 32 Sodium 136 L Potassium 3.9 Chloride 103 Carbon Dioxide 24 BUN 20 H Creatinine 1.02 Estimated GFR 53 L BUN/Creatinine Ratio 19.6 Glucose 124 H Lactate Calcium 8.4 Total Bilirubin 0.6 AST 25 ALT 17 Alkaline Phosphatase 90 Total Protein 6.7 Albumin 3.4 L Globulin 3.3 Albumin/Globulin Ratio 1.0 Lipase 48 Procalcitonin 2.04 H Urine Color Urine Appearance Urine pH Ur Specific [place] Urine Protein Urine Glucose (UA) Urine Ketones Urine Occult Blood Urine Nitrate Urine Bilirubin Urine Urobilinogen Ur Leukocyte Esterase Urine RBC Urine WBC Ur Squamous Epith Cells Amorphous Sediment Urine Bacteria Ur Culture Indicated? 02/06/23 02/06/23 11:35 12:18 WBC RBC Hgb Hct MCV MCH MCHC RDW Plt Count Neut % (Auto) Lymph % (Auto) [place] % (Auto) Eos % (Auto) Baso % (Auto) Neut # (Auto) Lymph # (Auto) [place] # (Auto) Eos # (Auto) Baso # (Auto) PT INR APTT Sodium Potassium Chloride Carbon Dioxide BUN Creatinine Estimated GFR BUN/Creatinine Ratio Glucose Lactate 0.8 Calcium Total Bilirubin AST ALT Alkaline Phosphatase Total Protein Albumin Globulin Albumin/Globulin Ratio Lipase Procalcitonin Urine Color Yellow Urine Appearance Clear Urine pH 6.5 Ur Specific [place] 1.010 Urine Protein Negative Urine Glucose (UA) Negative Urine Ketones Negative Urine Occult Blood 2+ H Urine Nitrate Negative Urine Bilirubin Negative Urine Urobilinogen 2.0 H Ur Leukocyte Esterase Negative Urine RBC 1-5/hpf Urine WBC 5-10/hpf H Ur Squamous Epith Cells None seen Amorphous Sediment 1+ Urine Bacteria Occasional (0-1) Ur Culture Indicated? Specimen cultured Assessment & Plan Assessment & Plan narrative: This is an 87 year old female with PMH of dementia, CAD with prior stenting, CKD stage III who lives at a [facility] in [place] admitted with acute cystitis and acute metabolic encephalopathy 1. Acute cystitis - only recevied cephalexin x1 dose this morning, however diagnosed nearly 4 days ago. No CVA tenderness on exam. - no need for additional imaging as likely at baseline creatinine, but if no response to antibiotics consider renal imaging to rule out obstruction. - continue ceftriaxone for 5 days given encephalopathy. - there is noted possible infiltrates on chest radiograph, however based on my interpretation her imaging appears quite similar to prior studies with no acute infiltrates. 2. Acute metabolic encephalopathy, rule out sepsis - GCS 14, secondary to acute cystitis. Possible early sepsis but SOFA score on presentation is 1. 3. Dementia, chronic - continue home risperdal 1 mg at bedtime. 4. CKD stage III - continue to monitor creatinine, suspect at baseline currently with creatinine of 1.02. 5. CAD - continue home asa, statin reportedly stopped according to daughter by PCP Code: Full per patient's daughter and POA/surrogate DVT: Lovenox daily I have utilized all available immediate resources to obtain, update, or review the patient's current medications. Dispo: observation, depending on mental status and lethargy possible discharge home tomorrow if rapid improvement. Possibly may need beyond two midnights. Additional history obtained via discussion with the ER provider, and patient's daughter. I have reviewed patient's outpatient provider documentation (note from PCP today) and relevant labs, EKG, and imaging personally. Quality MIPS - Admit I confirm the patient?s Advance Care Plan is present, Code status is documented, Surrogate decision maker is in patient?s record [If Yes, STOP here]: Yes
[2023-02-06] MEDS: AZITHROMYCIN 250 MG TABLET 500 MG PO (15:48)
--- NOTE | 2023-02-06 16:05 | PC.NURSE ---
Pt was found out of bed. Had pulled out her IV and confused. Pt was guided back to the bed. IV restarted
[2023-02-06] MEDS: risperiDONE 1 MG TABLET PO (20:29)
[2023-02-06] MEDS: SODIUM CHLORIDE 0.9% FLUSH 10 ML IV (20:30)
[2023-02-07] VITALS (13 sets, daily range): BP systolic 129–177; BP diastolic 60–78; PULSE 81–116; RESP 16–20; TEMP 36.9–38.3; O2SAT 94–99
--- NOTE | 2023-02-07 00:40 | PC.NURSE ---
Addendum entered by Gail Youssef R.N. 02/07/23 02:22: Started in again attempting to get out of bed so staff sitting with her 1:1. Robson SCHWARTZ, contacted and order received for IV Ativan. Shortly after receiving order patient became calmer and is now making no attempts to get out of bed and appears to be sleeping so Ativan not administered. Addendum entered by Gail Youssef R.N. 02/07/23 01:57: Patient crawling out of bed so gotten up to BSC but did not urinate and brief was dry. Back to bed but became more agitated. Temp 100.9 so medicated with Tylenol. Continuing to make attempts to get out of bed stating philipryfavio, I need to get up. Became combative and responds to staff with god damn it your no fun. Kicking at staff and swinging with arms. Bladder scan done showing 350cc in bladder so again assisted to BSC and then urinated 425cc. Now calmer. recheck on temp is 100.6. Original Note: Patient is oriented to first name and knows month of birthday but off on day and does not know year. Breath sounds CTA with RA sat of 95%. HRR w/BP of 149/64. Denies nausea. BT present and abdomen is soft; unknown if continent or incontinent of stool. Has been mostly continent of urine but also has some incontinece so is wearing a brief. Does not remember to call for assistance and will attempt to get up on her own when needing to urinate; is SBA when out of bed. Is able to turn herself and is impulsive. Denies pain when asked. Fall risk score is high and bed alarm is activated.
[2023-02-07] MEDS: ACETAMINOPHEN 325 MG TABLET 650 MG PO (00:45)
[2023-02-07 05:44] LABS: Acinetobacter calcoa-baumannii Not Detected (Not Detect); Bacteroides fragilis Not Detected (Not Detect); CTX-M Resistance Not Detected (Not Detect); Candida albicans Not Detected (Not Detect); Candida auris Not Detected (Not Detect); Candida glabrata Not Detected (Not Detect); Enterobacter cloacae complex Not Detected (Not Detect); Enterobacterales DETECTED (Not Detect); Enterococcus faecalis Not Detected (Not Detect); Enterococcus faecium Not Detected (Not Detect); Haemophilus influenzae Not Detected (Not Detect); IMP Resistance Not Detected (Not Detect); KPC Resistance Not Detected (Not Detect); Klebsiella aerogenes Not Detected (Not Detect); Listeria monocytogenes Not Detected (Not Detect); NDM Resistance Not Detected (Not Detect); Neisseria meningitidis Not Detected (Not Detect); OXA-48-like Resistance Not Detected (Not Detect); Proteus species Not Detected (Not Detect); Pseudomonas aeruginosa Not Detected (Not Detect); Salmonella species Not Detected (Not Detect); Serratia marcescens Not Detected (Not Detect); Staphylococcus epidermidis Not Detected (Not Detect); Staphylococcus lugdunensis Not Detected (Not Detect); Staphylococcus species Not Detected (Not Detect); Stenotrophomonas maltophilia Not Detected (Not Detect); Streptococcus agalactiae (Gr B Not Detected (Not Detect); Streptococcus pneumonia Not Detected (Not Detect); Streptococcus pyogenes (Gr A) Not Detected (Not Detect); Streptococcus species Not Detected (Not Detect); VIM Resistance Not Detected (Not Detect); mcr-1 Resistance Not Detected (Not Detect)
[2023-02-07 05:45] LABS: Candida krusei Not Detected (Not Detect); Candida parapsilosis Not Detected (Not Detect); Candida tropicalis Not Detected (Not Detect); Cryptococcus neoformans/gatti Not Detected (Not Detect)
[2023-02-07 06:40] LABS: Add Manual Diff / Slide Review NO; Basophils Absolute Auto 100 /uL (0-100); Basophils Percent Auto 0.6 % (0-2); Eosinophils Absolute Auto 0 /uL (0-450); Eosinophils Percent Auto 0.1 % (2-4); Hemoglobin 9.2 g/dL (12.0-16.0); Lymphocytes Absolute Auto 500 /uL (1100-4500); Lymphocytes Percent Auto 5.2 % (25-40); Mean Corpuscular Hemoglobin 27.1 PG (26-34); Mean Corpuscular Volume 79.8 fL (80-100); Monocytes Absolute Auto 600 /uL (0-900); Neutrophils Absolute Auto 8500 /uL (1500-7000); Neutrophils Percent Auto 88.1 % (50-75); Platelet Count 235 X10^3/uL (150-400); Red Blood Cell Count 3.38 X10^6/uL (4.0-5.2); Red Cell Distribution Width 16.5 % (11.6-14.8); White Blood Cell Count 9.6 X10^3/uL (4.5-11.0)
[2023-02-07 06:52] LABS: Alanine Aminotransferase 17 IU/L (<35); Alkaline Phosphatase 72 U/L (38-126); Aspartate Aminotransferase 30 IU/L (14-36); BUN Creatinine Ratio 16.7 (6-22); Bilirubin Total 0.6 mg/dL (0.2-1.3); Blood Urea Nitrogen 18 mg/dL (7-17); Calcium 7.9 mg/dL (8.4-10.2); Carbon Dioxide 26 mmol/L (22-32); Chloride 105 mmol/L (98-107); Estimated Glomerular Filt Rate 50 mL/min (>60); Glucose 119 mg/dL (80-110); HEMOLYSIS 45 (0-50); Magnesium 1.9 mg/dL (1.6-2.3); Potassium 3.8 mmol/L (3.4-5.1); Sodium 137 mmol/L (137-145)
[2023-02-07 07:08] LABS: Procalcitonin 2.83 ng/mL (<0.5)
[2023-02-07] MEDS: SODIUM CHLORIDE 0.9% FLUSH 10 ML IV ×2 (08:32→21:08)
[2023-02-07] MEDS: ASPIRIN EC 81 MG TABLET PO (08:32)
[2023-02-07] MEDS: ENOXAPARIN 40 MG/0.4 ML SYRINGE SUBCUT (08:32)
[2023-02-07] MEDS: cefTRIAXone 2,000 MG in SODIUM CHLORIDE 0.9% 100 ML 200 MG IV (13:19)
--- NOTE | 2023-02-07 13:28 | P.PN_ITS ---
Subjective Subjective Interval history: 87 F admitted with acute encephalopathy, blood cultures now positive for E. coli with likely urinary source. She is still very tired today, but slowly improving. She denies complaints today and has no pain, nausea, or vomiting. Exam Vital Signs (past 8 hours): - 02/07/23 05:49 02/07/23 05:45 02/07/23 08:06 Temperature 98.4 F 99.6 F Pulse Rate 99 H 97 H Respiratory Rate 18 18 Blood Pressure 162/78 H 142/62 H Pulse Oximetry 97 97 99 Oxygen Delivery Method Room Air Oxygen Flow Rate 0 0 0 02/07/23 09:00 02/07/23 11:18 Temperature 99 F Pulse Rate 85 Respiratory Rate 18 Blood Pressure 129/60 Pulse Oximetry 95 97 Oxygen Delivery Method Room Air Oxygen Flow Rate 0 0 Oxygen Delivery Method Room Air Oxygen Flow Rate 0 Narrative Exam Narrative: General:? Lethargic mildly acutely ill appearing elderly female, no acute distress HEENT:? Normocephalic, atraumatic, extraocular muscles intact, oral pharynx is clear and mucous membranes are dry Neck: supple and symmetric, trachea is midline, no cervical adenopathy. Negative for JVD Chest:? Normal AP diameter and contour without kyphoscoliosis, no tachypnea, equal chest rise bilaterally. Lungs:? CTA b/l no wheezing rhonchi or rales. Cardio:?RRR no m/r/g. Abdomen: S NT ND. No CVA tenderness. Musculoskeletal:? Muscle strength and tone are equal within normal limits, no deformity. Extremities: No edema or joint effusions. No cyanosis or clubbing. Skin:? Pale,? Warm to touch,dry and intact without rashes, ulcerations or petechiae.? Neuro:? Alert and orientated to name and hospital,? sensation to touch intact in all extremities, no gross deficits noted of cranial nerves. Lethargic and more confused than normal but improved from yesterday per daughter. Psych:? Patient has a well-kept appearance, appropriate affect, mental status attitude thought context and judgment are appropriate for age. Objective Labs 02/07/23 06:15 02/07/23 06:15 Labs: Laboratory Results - last 24 hr 02/07/23 02/07/23 02/07/23 04:30 06:15 06:15 WBC 9.6 RBC 3.38 L Hgb 9.2 L Hct 27.0 L MCV 79.8 L MCH 27.1 MCHC 34.0 RDW 16.5 H Plt Count 235 Neut % (Auto) 88.1 H Lymph % (Auto) 5.2 L [place] % (Auto) 6.0 Eos % (Auto) 0.1 L Baso % (Auto) 0.6 Neut # (Auto) 8500 H Lymph # (Auto) 500 L [place] # (Auto) 600 Eos # (Auto) 0 Baso # (Auto) 100 Sodium 137 Potassium 3.8 Chloride 105 Carbon Dioxide 26 BUN 18 H Creatinine 1.08 H Estimated GFR 50 L BUN/Creatinine Ratio 16.7 Glucose 119 H Calcium 7.9 L Magnesium 1.9 Total Bilirubin 0.6 AST 30 ALT 17 Alkaline Phosphatase 72 Total Protein 6.0 L Albumin 3.0 L Globulin 3.0 Albumin/Globulin Ratio 1.0 Procalcitonin 2.83 H A.calcoaceticus-baumannii cmplx PCR Not detected Bacteroides fragilis Not detected Liz albicans (PCR) Not detected Liz auris (PCR) Not detected C. glabrata (PCR) Not detected C. krusei (PCR) Not detected C. parapsilosis (PCR) Not detected C. tropicalis (PCR) Not detected C. neoform/gattii (PCR) Not detected Enterobacterales (PCR) Detected H E. cloacae complex PCR Not detected Enterococc faecalis PCR Not detected Enterococc faecium PCR Not detected E. coli (PCR) Detected H H. influenzae (PCR) Not detected Klebsiella aerogenes (PCR) Not detected Klebsiella oxytoca PCR Not detected Klebsiella pneumoniae Not detected List. monocytogenes PCR Not detected N. meningitidis (PCR) Not detected Proteus species (PCR) Not detected Salmonella spp. (PCR) Not detected Serratia marcescens PCR Not detected Staphylococcus sp PCR Not detected Staph aureus (PCR) Not detected mcr-1 Colistin Res Gene PCR Not detected Staph epidermidis (PCR) Not detected Staph lugdunensis PCR Not detected S. maltophilia (PCR) Not detected Streptococcus sp PCR Not detected Group A Strep (PCR) Not detected Strep agalactiae (PCR) Not detected Strep pneumoniae (PCR) Not detected P. aeruginosa (PCR) Not detected blaIMP Car res Gene PCR Not detected KPC-Carbap Res Gene PCR Not detected blaNDM Car Res Gene PCR Not detected OXA-48 Carbapenem Resis Gene (PCR) Not detected blaVIM Car Res Gene PCR Not detected CTX-M Gene Resistance (PCR) Not detected PFSH Medical History (Updated 02/06/23 @ 18:01 by Louis Mobley DO) CAD (coronary artery disease) CKD (chronic kidney disease), stage III Dementia Dextroscoliosis Lumbosacral spondylosis with radiculopathy Surgical History (Updated 02/06/23 @ 18:01 by Louis Mobley DO) History of coronary artery stent placement Family History (Updated 02/06/23 @ 18:02 by Louis Mobley DO) Mother No pertinent past medical history Father No pertinent past medical history Social History (Updated 02/06/23 @ 18:02 by Louis Mobley DO) Smoking Status: Never smoker Assessment & Plan Assessment & Plan narrative: This is an 87 year old female with PMH of dementia, CAD with prior stenting, CKD stage III who lives at a [facility] center in [place] admitted with acute cystitis and acute metabolic encephalopathy, now with blood cultures growing E. coli. 1. Acute cystitis with E. coli bacteremia - only recevied cephalexin x1 dose the morning of admission as an outpatient, however diagnosed many days prior to admission. No CVA tenderness on exam. - no need for additional imaging as likely at baseline creatinine, but if no response to antibiotics consider renal imaging to rule out obstruction. - continue ceftriaxone for 7 days given blood cultures now with E. coli bacteremia. Can transition to oral medications on discharge. - there was noted possible infiltrates on admission chest radiograph, however based on my interpretation her imaging appears quite similar to prior studies with no acute infiltrates. 2. Acute metabolic encephalopathy, ruled out sepsis - GCS 14, secondary to acute cystitis and bacteremia. Possible early sepsis but SOFA score on presentation is 1. 3. Dementia, chronic - continue home risperdal 1 mg at bedtime. - add melatonin for sleep while in hospital 4. CKD stage III - continue to monitor creatinine, suspect at baseline currently with creatinine of 1.02. 5. CAD - continue home asa, statin reportedly stopped according to daughter by PCP Code: Full per patient's daughter and POA/surrogate DVT: Lovenox daily I have utilized all available immediate resources to obtain, update, or review the patient's current medications. Dispo: Changed to inpatient. Consider PT/OT depending on progress before returning to [facility] care facility. Additional history obtained via discussion with the ER provider, and patient's daughter. I have reviewed patient's outpatient provider documentation (note from PCP today) and relevant labs, EKG, and imaging personally.
[2023-02-07] MEDS: PHENAZOPYRIDINE 100 MG TABLET PO ×2 (15:25→21:08)
--- NOTE | 2023-02-07 15:40 | CM.DANOTE ---
DCP Assessment Note: Patient is a 87yo F here under inpatient status for a UTI and pneumonia. PCP: Milton Weiss Payer: [employer] medicare and medicare PROGRAM PROJECT MANAGER reviewed EMR. Per provider in rounds, patient will likely be here for a day or two to treat UTI/pneumonia. Patient lives at a memory care unit in [place]. From nursing staff, patient is irritated and confused. PROGRAM PROJECT MANAGER lvm with daughter/DPCornelia LOPEZ ([phone]). PROGRAM PROJECT MANAGER [facility] in [place]. Nurse Allegra reported patient ambulates independently and they assist her with some personal care needs. Patient is communicative and often confused with location/circumstance. Allegra reports they will need a discharge summary and for the nurse to give a nurse to nurse report. PROGRAM PROJECT MANAGER spoke with daughter outside of room. Daughter reports she can transport patient back to [facility] when medically stable. Plan: patient will d/c back to [facility] when medically stable via daughter in POV. CM team will continue to follow closely. JEANNETTE Pelayo Discharge Planning/Care Management Advanced directive,confirm from FACILITY Start: 02/06/23 17:43 Freq: Q24H Status: Active Protocol: Document 02/06/23 17:43 EM (Rec: 02/06/23 17:44 EM [id number]) Advance Directive, confirm on record Time 17:43 Person contacted [facility] staff Copy received No CM Discharge Assessment Start: 02/07/23 15:37 Freq: Status: Active Protocol: Document 02/07/23 15:37 SL (Rec: 02/07/23 15:40 SL [id number]) Discharge Planning Assessment Assigned Oncology Social Worker JEANNETTE Hugo DPJESSICA/Assigned Designee Name Daughter Cornelia Contact Information [phone] Advance Directives? Yes Advance Directives on File No History Provided By Family Member,Medical Record Prior Living Arrangements Assisted Living Comment [facility] in [place] Household Members other Type of transporation used prior to Relies on Others admit Facility Name Admitted From: [facility] Willing to Return to Facility? Yes Independent with ADL's No Is patient alert and oriented? No: confused Needs Assistance With Grooming,Meal Prep,Managing Medications,Home Chores / Shopping Barriers to Discharge No Discharge Plan Assisted Living Facility Transportation Arrangement daughter will likely transport Whiteboard Updated in Patient Room with No name and ext. # of Oncology Social Worker Review Status In Process Next Review Type Continued Stay Review
[2023-02-07] MEDS: risperiDONE 1 MG TABLET PO (21:08)
[2023-02-07] MEDS: MELATONIN 3 MG TABLET 6 MG PO (21:08)
[2023-02-08] VITALS (12 sets, daily range): BP systolic 111–152; BP diastolic 55–66; PULSE 76–107; RESP 16–18; TEMP 36.5–38; O2SAT 94–98
[2023-02-08 07:24] LABS: Add Manual Diff / Slide Review NO; Basophils Absolute Auto 0 /uL (0-100); Basophils Percent Auto 0.4 % (0-2); Eosinophils Absolute Auto 0 /uL (0-450); Eosinophils Percent Auto 0.2 % (2-4); Hemoglobin 9.5 g/dL (12.0-16.0); Lymphocytes Absolute Auto 400 /uL (1100-4500); Mean Corpuscular HGB Conc 34.1 % (30-36); Monocytes Absolute Auto 700 /uL (0-900); Neutrophils Absolute Auto 9100 /uL (1500-7000); Neutrophils Percent Auto 88.4 % (50-75); Platelet Count 200 X10^3/uL (150-400); Red Blood Cell Count 3.54 X10^6/uL (4.0-5.2); Red Cell Distribution Width 16.1 % (11.6-14.8); White Blood Cell Count 10.3 X10^3/uL (4.5-11.0)
[2023-02-08 07:31] LABS: Alanine Aminotransferase 18 IU/L (<35); Albumin 3.1 g/dL (3.5-5.0); Alkaline Phosphatase 101 U/L (38-126); Aspartate Aminotransferase 29 IU/L (14-36); Bilirubin Total 0.6 mg/dL (0.2-1.3); Blood Urea Nitrogen 13 mg/dL (7-17); Calcium 8.1 mg/dL (8.4-10.2); Carbon Dioxide 22 mmol/L (22-32); Chloride 102 mmol/L (98-107); Estimated Glomerular Filt Rate 59 mL/min (>60); Globulin 3.2 g/dL (1.7-4.1); Glucose 149 mg/dL (80-110); HEMOLYSIS < 15 (0-50); Magnesium 1.8 mg/dL (1.6-2.3); Potassium 3.5 mmol/L (3.4-5.1); Sodium 133 mmol/L (137-145); Total Protein 6.3 g/dL (6.3-8.2)
[2023-02-08] MEDS: PHENAZOPYRIDINE 100 MG TABLET PO ×3 (08:49→20:29)
[2023-02-08] MEDS: ENOXAPARIN 30 MG/0.3 ML SYRINGE SUBCUT (08:49)
[2023-02-08] MEDS: ASPIRIN EC 81 MG TABLET PO (08:50)
[2023-02-08] MEDS: SODIUM CHLORIDE 0.9% FLUSH 10 ML IV ×2 (08:50→20:29)
[2023-02-08] MEDS: ACETAMINOPHEN 325 MG TABLET 650 MG PO (08:50)
--- NOTE | 2023-02-08 12:21 | P.PN_ITS ---
Subjective Subjective Interval history: 87 F admitted with acute encephalopathy, blood cultures now positive for E. coli with likely urinary source. She is much improved today, more alert and eating lunch. Exam Vital Signs (past 8 hours): - 02/08/23 05:00 02/08/23 08:00 02/08/23 08:50 Temperature 100.4 F H 100.4 F H Pulse Rate 107 H Respiratory Rate 18 Blood Pressure 152/66 H Pulse Oximetry 95 94 Oxygen Delivery Method Room Air Oxygen Flow Rate 0 02/08/23 09:00 02/08/23 10:42 Temperature 97.9 F Pulse Rate Respiratory Rate Blood Pressure Pulse Oximetry 94 Oxygen Delivery Method Room Air Oxygen Flow Rate Oxygen Delivery Method Room Air Oxygen Flow Rate 0 Narrative Exam Narrative: General:? Well appearing elderly female, no acute distress HEENT:? Normocephalic, atraumatic, extraocular muscles intact, oral pharynx is clear and mucous membranes are dry Neck: supple and symmetric, trachea is midline, no cervical adenopathy. Negative for JVD Chest:? Normal AP diameter and contour without kyphoscoliosis, no tachypnea, equal chest rise bilaterally. Lungs:? CTA b/l no wheezing rhonchi or rales. Cardio:?RRR no m/r/g. Abdomen: S NT ND. No CVA tenderness. Musculoskeletal:? Muscle strength and tone are equal within normal limits, no deformity. Extremities: No edema or joint effusions. No cyanosis or clubbing. Skin:? Pale,? Warm to touch,dry and intact without rashes, ulcerations or petechiae.? Neuro:? Alert and orientated to name and hospital,? sensation to touch intact in all extremities, no gross deficits noted of cranial nerves. Much improved lethargy and alertness today. Psych:? Patient has a well-kept appearance, appropriate affect, mental status a ttitude thought context and judgment are appropriate for age. Objective Labs 02/08/23 06:59 02/08/23 06:59 Labs: Laboratory Results - last 24 hr 02/07/23 02/08/23 02/08/23 04:30 06:59 06:59 WBC 10.3 RBC 3.54 L Hgb 9.5 L Hct 28.0 L MCV 79.0 L MCH 27.0 MCHC 34.1 RDW 16.1 H Plt Count 200 Neut % (Auto) 88.4 H Lymph % (Auto) 4.0 L Kenedy % (Auto) 7.0 Eos % (Auto) 0.2 L Baso % (Auto) 0.4 Neut # (Auto) 9100 H Lymph # (Auto) 400 L Kenedy # (Auto) 700 Eos # (Auto) 0 Baso # (Auto) 0 Sodium 133 L Potassium 3.5 Chloride 102 Carbon Dioxide 22 BUN 13 Creatinine 0.93 Estimated GFR 59 L BUN/Creatinine Ratio 14.0 Glucose 149 H Calcium 8.1 L Magnesium 1.8 Total Bilirubin 0.6 AST 29 ALT 18 Alkaline Phosphatase 101 Total Protein 6.3 Albumin 3.1 L Globulin 3.2 Albumin/Globulin Ratio 1.0 A.calcoaceticus-baumannii cmplx PCR Not detected Bacteroides fragilis Not detected Liz albicans (PCR) Not detected Liz auris (PCR) Not detected C. glabrata (PCR) Not detected C. krusei (PCR) Not detected C. parapsilosis (PCR) Not detected C. tropicalis (PCR) Not detected C. neoform/gattii (PCR) Not detected Enterobacterales (PCR) Detected H E. cloacae complex PCR Not detected Enterococc faecalis PCR Not detected Enterococc faecium PCR Not detected E. coli (PCR) Detected H H. influenzae (PCR) Not detected Klebsiella aerogenes (PCR) Not detected Klebsiella oxytoca PCR Not detected Klebsiella pneumoniae Not detected List. monocytogenes PCR Not detected N. meningitidis (PCR) Not detected Proteus species (PCR) Not detected Salmonella spp. (PCR) Not detected Serratia marcescens PCR Not detected Staphylococcus sp PCR Not detected Staph aureus (PCR) Not detected mcr-1 Colistin Res Gene PCR Not detected Staph epidermidis (PCR) Not detected Staph lugdunensis PCR Not detected S. maltophilia (PCR) Not detected Streptococcus sp PCR Not detected Group A Strep (PCR) Not detected Strep agalactiae (PCR) Not detected Strep pneumoniae (PCR) Not detected P. aeruginosa (PCR) Not detected blaIMP Car res Gene PCR Not detected KPC-Carbap Res Gene PCR Not detected blaNDM Car Res Gene PCR Not detected OXA-48 Carbapenem Resis Gene (PCR) Not detected blaVIM Car Res Gene PCR Not detected CTX-M Gene Resistance (PCR) Not detected PFSH Medical History (Updated 02/06/23 @ 18:01 by Louis Mobley DO) CAD (coronary artery disease) CKD (chronic kidney disease), stage III Dementia Dextroscoliosis Lumbosacral spondylosis with radiculopathy Surgical History (Updated 02/06/23 @ 18:01 by Louis Mobley DO) History of coronary artery stent placement Family History (Updated 02/06/23 @ 18:02 by Louis Mobley DO) Mother No pertinent past medical history Father No pertinent past medical history Social History (Updated 02/06/23 @ 18:02 by Louis Mobley DO) household members: other Smoking Status: Never smoker Assessment & Plan Assessment & Plan narrative: This is an 87 year old female with PMH of dementia, CAD with prior stenting, CKD stage III who lives at a [facility] in [place] admitted with acute cystitis and acute metabolic encephalopathy, now with blood cultures growing E. coli. 1. Acute cystitis with E. coli bacteremia - only recevied cephalexin x1 dose the morning of admission as an outpatient, however diagnosed many days prior to admission. No CVA tenderness on exam. - no need for additional imaging as likely at baseline creatinine, and improvement with antibiotics - continue ceftriaxone for 7 days given blood cultures now with E. coli bacteremia. Can transition to oral medications on discharge once blood cultures are finalized. - there was noted possible infiltrates on admission chest radiograph, however based on my interpretation her imaging appears quite similar to prior studies with no acute infiltrates. 2. Acute metabolic encephalopathy, ruled out sepsis - GCS 14, secondary to acute cystitis and bacteremia. Possible early sepsis but SOFA score on presentation is 1. - improving with above therapies 3. Dementia, chronic - continue home risperdal 1 mg at bedtime. - add melatonin for sleep while in hospital - ativan PO, small dose, if needed for agitation at night. 4. CKD stage III - continue to monitor creatinine, suspect at baseline currently with creatinine of 0.93 today. 5. CAD - continue home asa, statin reportedly stopped according to daughter by PCP 6. Chronic anemia - h/h stable, okay to stop trending CBC. Code: Full per patient's daughter and POA/surrogate DVT: Lovenox daily I have utilized all available immediate resources to obtain, update, or review the patient's current medications. Dispo: Changed to inpatient. Return to memory care likely tomorrow, pending blood cultures if E. coli is sensitive to oral therapies. Additional history obtained via discussion with the patient's daughter. I have reviewed patient's relevant labs today
[2023-02-08] MEDS: cefTRIAXone 2,000 MG in SODIUM CHLORIDE 0.9% 100 ML 200 MG IV (13:39)
--- NOTE | 2023-02-08 13:50 | CM.DPC ---
DCP Continued: SHIP ERECTOR reviewed EMR. Per provider in rounds, patient is likely to d/c tomorrow. SHIP ERECTOR called Viktoria ([phone]) at [facility] to update her on the timeline. Viktoria appeared appreciative. They will need d/c summary and nurse to nurse report upon d/c. SHIP ERECTOR spoke with daughter Cornelia. Cornelia confirmed she can transport patient back to [facility] tomorrow/when medically cleared for d/c. Plan: patient will d/c to [facility] when medically cleared, likely tomorrow. Daughter will transport in POV. CM team will fax d.c summary and facilitate nurse to nurse report upon d/c. CM team will continue to follow as needed. JEANNETTE Pelayo
[2023-02-08] MEDS: LORazepam 0.5 MG TABLET PO (16:48)
[2023-02-08] MEDS: risperiDONE 1 MG TABLET PO (20:29)
[2023-02-08] MEDS: MELATONIN 3 MG TABLET 6 MG PO (20:29)
[2023-02-09] VITALS: BP 123/55; PULSE 83; RESP 18; TEMP 36.9; O2SAT 94
[2023-02-09 04:14] VITALS: BP 124/59; PULSE 90; RESP 16; TEMP 37.1; O2SAT 95
[2023-02-09 05:00] VITALS: O2SAT 95
[2023-02-09 07:34] LABS: Alanine Aminotransferase 17 IU/L (<35); Albumin 3.1 g/dL (3.5-5.0); Alkaline Phosphatase 91 U/L (38-126); Aspartate Aminotransferase 23 IU/L (14-36); BUN Creatinine Ratio 14.3 (6-22); Bilirubin Total 0.5 mg/dL (0.2-1.3); Blood Urea Nitrogen 15 mg/dL (7-17); Calcium 8.2 mg/dL (8.4-10.2); Carbon Dioxide 25 mmol/L (22-32); Chloride 102 mmol/L (98-107); Estimated Glomerular Filt Rate 51 mL/min (>60); Glucose 116 mg/dL (80-110); HEMOLYSIS < 15 (0-50); Magnesium 1.9 mg/dL (1.6-2.3); Potassium 3.8 mmol/L (3.4-5.1); Sodium 134 mmol/L (137-145); Total Protein 6.1 g/dL (6.3-8.2)
[2023-02-09 08:00] VITALS: BP 130/66; PULSE 85; RESP 16; TEMP 36.6; O2SAT 97
--- NOTE | 2023-02-09 08:26 | P.PN_ITS ---
Subjective Subjective Interval history: Patient indicates she is having a good day. No new complaints. No complaints from nursing. Exam Vital Signs (past 8 hours): - 02/09/23 04:14 02/09/23 05:00 Temperature 98.7 F Pulse Rate 90 Respiratory Rate 16 Blood Pressure 124/59 L Pulse Oximetry 95 95 Oxygen Delivery Method Room Air Oxygen Flow Rate 0 Oxygen Delivery Method Room Air Oxygen Flow Rate 0 Narrative Exam Narrative: General:? Well appearing elderly female, no acute distress HEENT:? Normocephalic, atraumatic, extraocular muscles intact Neck: supple and symmetric, trachea is midline, no cervical adenopathy. Chest:? Normal AP diameter and contour without kyphoscoliosis, no tachypnea, equal chest rise bilaterally. Lungs:? CTA b/l no wheezing rhonchi or rales. Cardio:?RRR no m/r/g. Abdomen: S NT ND. No CVA tenderness. Musculoskeletal:? Muscle strength and tone are equal within normal limits, no deformity. Extremities: No edema or joint effusions. No cyanosis or clubbing. Skin:? Pale,? Warm to touch,dry and intact without rashes or lesions. Neuro:? Alert and orientated to name,?sensation to touch intact in all extremities, no gross deficits noted of cranial nerves. Objective Labs 02/08/23 06:59 02/09/23 06:43 Labs: Laboratory Results - last 24 hr 02/09/23 06:43 Sodium 134 L Potassium 3.8 Chloride 102 Carbon Dioxide 25 BUN 15 Creatinine 1.05 H Estimated GFR 51 L BUN/Creatinine Ratio 14.3 Glucose 116 H Calcium 8.2 L Magnesium 1.9 Total Bilirubin 0.5 AST 23 ALT 17 Alkaline Phosphatase 91 Total Protein 6.1 L Albumin 3.1 L Globulin 3.0 Albumin/Globulin Ratio 1.0 [facility] Medical History (Updated 02/06/23 @ 18:01 by Louis Mobley DO) CAD (coronary artery disease) CKD (chronic kidney disease), stage III Dementia Dextroscoliosis Lumbosacral spondylosis with radiculopathy Surgical History (Updated 02/06/23 @ 18:01 by Louis Mobley DO) History of coronary artery stent placement Family History (Updated 02/06/23 @ 18:02 by Louis Mobley DO) Mother No pertinent past medical history Father No pertinent past medical history Social History (Updated 02/06/23 @ 18:02 by Louis Mobley DO) household members: other Smoking Status: Never smoker Assessment & Plan Assessment & Plan narrative: 1. Acute cystitis initial concern however culture is negative with E. coli bacteremia ?- only recevied cephalexin x1 dose the morning of admission as an outpatient, however diagnosed many days prior to admission. Transitioned to 2 g IV daily previously. ?- no need for additional imaging as likely at baseline creatinine, and improvement with antibiotics ?- continue ceftriaxone for 7 days given blood cultures now with E. coli bacteremia. Can transition to oral medications on discharge once blood cultures are finalized. Repeat cultures taken today. ?- there was noted possible infiltrates on admission chest radiograph, however based on my interpretation her imaging appears quite similar to prior studies with no acute infiltrates. And ceftriaxone 2 g daily would cover. 2. Acute metabolic encephalopathy, ruled out sepsis ?- GCS 14, secondary to acute cystitis and bacteremia. Possible early sepsis but SOFA score on presentation is 1. ?- improving with above therapies, likely to baseline at this time 3. Dementia, chronic ?- continue home risperdal 1 mg at bedtime. ?- add melatonin for sleep while in hospital ?- ativan PO, small dose, if needed for agitation at night. 4. CKD stage III ?- continue to monitor creatinine, suspect at baseline currently with creatinine of 1.05 today. 5. CAD ?- continue home asa, statin reportedly stopped according to daughter by PCP, will continue on discharge. 6. Chronic anemia ?- h/h stable, stopped trending CBC. Once cultures of blood are finalized with sensitivity can transitioned to oral medication. Repeat culture today will be confirmatory however patient can be discharged prior to results. Code: Full per patient's daughter and POA/surrogate DVT: Lovenox daily
[2023-02-09 09:00] VITALS: O2SAT 97
[2023-02-09] MEDS: PHENAZOPYRIDINE 100 MG TABLET PO (09:26)
[2023-02-09] MEDS: ENOXAPARIN 30 MG/0.3 ML SYRINGE SUBCUT (09:26)
[2023-02-09] MEDS: ASPIRIN EC 81 MG TABLET PO (09:26)
[2023-02-09] MEDS: SODIUM CHLORIDE 0.9% FLUSH 10 ML IV (09:32)
--- NOTE | 2023-02-09 10:34 | CM.DPC ---
Addendum entered by Echo Dos Santos R.N. 02/09/23 11:33: Patient will be discharging back to [facility] today, daughter is here. Called over at [facility], spoke to Viktoria, they are prepared to accept. Prescription was sent over to [facility] in [place]. [facility] fax number is: [phone]. Will fax over DC Summary Original Note: DCP Cont: Discussed patient during team rounds, hospitalist indicated that final cultures are pending, unsure if ready for discharge today. Plan is to return to [facility], daughter is to transport, will call facility when ready, and will see if new meds need to be ordered. P: DCP to continue to follow. Plan is for patient to return to [facility] when stable, could be today, later, or tomorrow. Echo Dos Santos RN/[employer] Strategist
--- NOTE | 2023-02-09 10:47 | P.DS_ITS ---
History of Present Illness History of Present Illness Date Patient Seen: 02/09/23 Chief complaint: DR glen UTI Narrative: Sensitivities have returned on regards to E coli positive culture for blood. Repeat cultures are still pending however will transitioned to oral antibiotics for another 7 days and follow the repeat blood cultures over the next 2 days. Patient herself is eager to be discharged. Discharge Providers Provider Date of admission: 02/06/23 16:21 Discharge Date: 02/09/23 Primary care physician: Warren Weiss MD Discharge provider: Agnieszka Olvera MD Summary Hospital Course Discharge Diagnosis: Acute cystitis initial concern however culture is negative E coli bacteremia with donohue sensitivity Acute metabolic encephalopathy Dementia, chronic CKD stage III CAD Chronic anemia Other comorbidities/past medical history: Dextroscoliosis Lumbosacral spondylosis with radiculopathy History of coronary artery stent placement Hospital Course: Seirra Harman is an 87 year old female with PMH of dementia, CAD with prior stenting, CKD stage III who lives at a [facility] in [place] who was sent to the emergency room by her PCP. Patient had been more lethargic over the last 4 days per her daughter. Additional history was obtained via discussion with patient's daughter given patient's dementia and inaccurate recall of events along with her noted lethargy. She did not reported a fever, abdominal pain, nausea, vomiting or diarrhea. There had been no cough noted either. Normally patient is quite talkative, ambulatory with a walker and active at her memory care center. She was tested and found to have a UTI ,5 days prior to presentation, but did not take her first antibiotic pill (cephalexin) until the morning of ER presentation. She had a PCP appointment on the morning of presentation, when she was noted to be quite a bit more lethargic per her PCP and was recommended to come to the ER. Daughter did report chronic R sided leg and back pain, maybe slightly worse than usual but nothing absurdly out of the ordinary for her. Patient was treated with intravenous ceftriaxone 2 g IV daily and cultures of urine and blood were obtained. Urine cultures were negative however blood cultures were positive x2 E coli. This was noted to be pansensitive to antibiotics once sensitivity was completed. Patient was transitioned to oral Cipro 250 mg p.o. b.i.d. for 14 doses at the time of discharge. Repeat blood cultures were obtained on the day of discharge to ensure are negative. I will personally follow these until results are known. Status at Discharge Cognitive/behavioral status at discharge: at baseline, confused Functional status at discharge: uses cane/walker Overall status at discharge: patient is back to baseline Time Spent with Patient Time spent: Greater than 30 minutes Exam Vital Signs (past 8 hours): - 02/09/23 04:14 02/09/23 05:00 02/09/23 08:00 Temperature 98.7 F 97.9 F Pulse Rate 90 85 Respiratory Rate 16 16 Blood Pressure 124/59 L 130/66 Pulse Oximetry 95 95 97 Oxygen Delivery Method Room Air Oxygen Flow Rate 0 02/09/23 09:00 Temperature Pulse Rate Respiratory Rate Blood Pressure Pulse Oximetry 97 Oxygen Delivery Method Room Air Oxygen Flow Rate Oxygen Delivery Method Room Air Oxygen Flow Rate 0 Narrative Exam Narrative: General:? Well appearing elderly female, no acute distress HEENT:? Normocephalic, atraumatic, extraocular muscles intact Neck: supple and symmetric, trachea is midline, no cervical adenopathy. Chest:? Normal AP diameter and contour without kyphoscoliosis, no tachypnea, equal chest rise bilaterally. Lungs:? CTA b/l no wheezing rhonchi or rales. Cardio:?RRR no m/r/g. Abdomen: S NT ND. No CVA tenderness. Musculoskeletal:? Muscle strength and tone are equal within normal limits, no deformity. Extremities: No edema or joint effusions. No cyanosis or clubbing. Skin:? Pale,? Warm to touch,dry and intact without rashes or lesions. Neuro:? Alert and orientated to name,?sensation to touch intact in all extremities, no gross deficits noted of cranial nerves. Objective Labs 02/08/23 06:59 02/09/23 06:43 Labs: Laboratory Results - last 24 hr 02/09/23 06:43 Sodium 134 L Potassium 3.8 Chloride 102 Carbon Dioxide 25 BUN 15 Creatinine 1.05 H Estimated GFR 51 L BUN/Creatinine Ratio 14.3 Glucose 116 H Calcium 8.2 L Magnesium 1.9 Total Bilirubin 0.5 AST 23 ALT 17 Alkaline Phosphatase 91 Total Protein 6.1 L Albumin 3.1 L Globulin 3.0 Albumin/Globulin Ratio 1.0 PFSH Medical History (Updated 02/06/23 @ 18:01 by Louis Mobley DO) CAD (coronary artery disease) CKD (chronic kidney disease), stage III Dementia Dextroscoliosis Lumbosacral spondylosis with radiculopathy Surgical History (Updated 02/06/23 @ 18:01 by Louis Mobley DO) History of coronary artery stent placement Family History (Updated 02/06/23 @ 18:02 by Louis Mobley DO) Mother No pertinent past medical history Father No pertinent past medical history Social History (Updated 02/06/23 @ 18:02 by Louis Mobley DO) household members: other Smoking Status: Never smoker Discharge Plan Discharge Plan Patient Disposition: Home Discharge orders & Medications Prescriptions: New ciprofloxacin HCl 250 mg Tablet 250 mg PO 0700,2100 Qty: 14 0RF Continued aspirin 81 mg Capsule,Delayed Release(Dr/Ec) 81 mg PO DAILY risperidone 1 mg Tablet 1 mg PO BEDTIME Discontinued cephalexin 500 mg capsule 500 mg PO BID Patient Comments: TAKE 1 CAPSULE BY MOUTH TWICE DAILY FOR 10 DAYS Follow up/Referrals: Warren Weiss MD [Primary Care Provider] - Visit Report/Discharge Packet Stand Alone Forms: Patient Portal/API, Stroke Signs & Symptoms Discharge Data Primary Care Provider: Warren Weiss
[2023-02-09] MEDS: LORazepam 0.5 MG TABLET PO (10:57)
--- NOTE | 2023-02-09 12:52 | PC.NURSE ---
Day shift: Notified MD Olvera as patient's daughter requesting PO ativan for agitation. ordered 0.5mg PO. DIshcarge instructions gone over with patient's daughter as patient is too confused to understand discharge instructions. She is A&Ox1 with short term memory loss. Patient's daughter stated understanding of discharge instructions and all questions answered. PIV removed. Called [facility] care facility in [place] and gave report to [facility] there. Told her that patient's daughter would be picking up new PO antibiotic for patient, to start taking today. Patient escorted to exit via wheelchair with patient's daughter and patient tech Nery.
== END 2023-02-09 12:45 | disposition home or self-care (01) | DRG 689 ==
LOC: ED 15:46 → AC 17:40
PROVIDERS: Emergency Medicine; Admitting Provider Internal Medicine; Emergency Provider Student in an Organized Health Care Education/Training Program; Family Provider Internal Medicine; PCP Family Medicine; Referring Provider Student in an Organized Health Care Education/Training Program; Visit Provider Internal Medicine
DX: N30.00 Acute cystitis without hematuria (principal); G93.41 Metabolic encephalopathy; I25.10 Atherosclerotic heart disease of native coronary artery without angina pectoris; F03.90 Unspecified dementia, unspecified severity, without behavioral disturbance, psychotic disturbance, mood disturbance, and anxiety; N18.30 Chronic kidney disease, stage 3 unspecified; B96.20 Unspecified Escherichia coli [E. coli] as the cause of diseases classified elsewhere; D64.9 Anemia, unspecified; Z95.5 Presence of coronary angioplasty implant and graft
CPT/HCPCS: 36415; 51701; 71045; 80053; 81001; 83605; 83690; 83735; 84145; 85025; 85610; 85730; 87040; 87077; 87086; 87154; 87186; 93005; 96365; 99285; J0696; J1650

== ENCOUNTER → 2023-02-28 13:39 | Outpatient (CLI) | payer OTHER, SELFPAY ==
[2023-02-06 16:38] VITALS: BMI 22.6
--- NOTE | 2023-02-28 | DI.RAD.S_ITS ---
PROCEDURE: XR HAND RT MIN 3V INDICATIONS: Contusion of right hand, initial encounter, around thumb area TECHNIQUE: 3 views of the hand(s) acquired. COMPARISON: [facility], , HAND 2V LEFT, 05/21/2007, 14:51. FINDINGS: Bones: No fractures or dislocations. Carpal bones are normally aligned. No suspicious bony lesions. Generalized decreased osseous mineralization noted. A joint space narrowing, subchondral sclerosis small marginal osteophytes noted involving the 1st CMC as well as the DIP joints. Soft tissues: No suspicious soft tissue calcifications. IMPRESSION: Osteoarthritis. No fracture Approved by: Parvez Warren M.D. on 02/28/2023 at 20:30
== END ==
PROVIDERS: Family Provider Internal Medicine; PCP Family Medicine; Referring Provider Family Medicine; Visit Provider Family Medicine
DX: S60.221A Contusion of right hand, initial encounter (principal); M19.041 Primary osteoarthritis, right hand
CPT/HCPCS: 73130

== ENCOUNTER → 2023-04-08 11:36 | Outpatient (CLI) | payer OTHER, SELFPAY ==
[2023-02-06 16:38] VITALS: BMI 22.6
--- NOTE | 2023-04-08 | DI.CT.S_ITS ---
PROCEDURE: CT CHEST WO CON INDICATIONS: Solitary pulmonary nodule TECHNIQUE: Noncontrast 5 mm thick sections acquired from the pulmonary apices to the posterior costophrenic angles. 1 mm lung window, 5 mm thick coronal and sagittal and 7 mm axial MIP reformats were then acquired. For radiation dose reduction, the following was used: automated exposure control, adjustment of mA and/or kV according to patient size. COMPARISON: [facility], CT, CT CHEST WITHOUT CONTRAST, 09/18/2021, 13:07. [facility], CT, CT CHEST WITHOUT CONTRAST, 04/03/2022, 12:47. [facility], CT, CT CHEST WO CON, 02/12/2020, 11:51. FINDINGS: Lungs and pleura: Moderate right pleural effusion new compared to the prior CT. Possible areas of pleural nodularity present for example series 2, image 46. The right lower lobe is now nearly or completely collapsed with rounded masslike opacity present in the right perihilar region. Multiple right lower lobe airways are opacified /occluded. There are numerous new nodules present within both lungs, some of which are cavitary. For example an irregular cavitary nodule anterior left upper lobe measuring 1.2 cm (3/86). Irregular masslike opacity present posterior right middle lobe or anterior right lower lobe 4.2 cm (3/195). Mediastinum: No pericardial effusion. Mediastinum and catherine are not well evaluated on this noncontrast exam however mediastinal adenopathy is present for example a right lower paratracheal lymph node measuring 1.3 cm (2/25). Small hiatal hernia. Multivessel coronary artery calcifications and/or stents. Bones and chest wall: Multilevel degenerative change of the visualized spine. No axillary or supraclavicular adenopathy by size criteria. Abdomen: 2.2 cm rounded hypodense lesion in hepatic segment 2 (2/50) new compared to the prior CT. IMPRESSION: 1. New moderate right pleural effusion with increased opacity of the right lower lobe, now completely or nearly completely opacified/collapsed. There are possible areas of right-sided pleural nodularity also present. 2. Numerous irregular pulmonary nodules now present within both lungs. Additional masslike opacities at the right lung base and right perihilar region. 3. New 2.2 cm liver lesion in hepatic segment 2. 4. Mediastinal adenopathy present. 5. Overall findings suspicious for metastatic neoplasm, likely lung primary. Correlation with any prior biopsy results may be helpful however. Dictated by: Dewayne Martino M.D. on 04/09/2023 at 10:35 Approved by: Dewayne Martino M.D. on 04/09/2023 at 10:54
== END ==
PROVIDERS: Family Provider Internal Medicine; PCP Family Medicine; Referring Provider Family Medicine; Visit Provider Family Medicine
DX: J90 Pleural effusion, not elsewhere classified (principal); R91.8 Other nonspecific abnormal finding of lung field; K76.9 Liver disease, unspecified; R59.0 Localized enlarged lymph nodes
CPT/HCPCS: 71250

== ENCOUNTER → 2023-04-30 09:43 | Outpatient (CLI) | payer OTHER, SELFPAY ==
[2023-02-06 16:38] VITALS: BMI 22.6
== END ==
PROVIDERS: Family Provider Internal Medicine; PCP Family Medicine; Referring Provider Family Medicine; Visit Provider Surgery
DX: L98.492 Non-pressure chronic ulcer of skin of other sites with fat layer exposed (principal)
CPT/HCPCS: 11042; 99203; 99212

== ENCOUNTER → 2023-05-08 13:14 | Outpatient (CLI) | payer OTHER, SELFPAY ==
[2023-02-06 16:38] VITALS: BMI 22.6
== END ==
PROVIDERS: Family Provider Internal Medicine; PCP Family Medicine; Referring Provider Family Medicine; Visit Provider Surgery
DX: L98.492 Non-pressure chronic ulcer of skin of other sites with fat layer exposed (principal); F03.90 Unspecified dementia, unspecified severity, without behavioral disturbance, psychotic disturbance, mood disturbance, and anxiety
CPT/HCPCS: 11042; 87070; 87075; 87077; 87147; 87186; 87205; 99213

== ENCOUNTER → 2023-05-15 13:38 | Outpatient (CLI) | payer OTHER, SELFPAY ==
[2023-02-06 16:38] VITALS: BMI 22.6
== END ==
PROVIDERS: Family Provider Internal Medicine; PCP Family Medicine; Referring Provider Family Medicine; Visit Provider Surgery
DX: S01.00XA Unspecified open wound of scalp, initial encounter (principal); R60.0 Localized edema; L53.9 Erythematous condition, unspecified
CPT/HCPCS: 11104; 99213